=== PATIENT | male | born 1940 | race Caucasian/White ===

== ENCOUNTER 2019-03-15 06:28 | Day surgery (SDC) | payer MEDICARE, OTHER, SELFPAY ==
[2019-03-14 17:39] VITALS: BMI 25.8
--- NOTE | 2019-03-15 | SCC_ITS ---
Procedure Done: Right second hammertoe correction 1 second of fluoroscopic guidance, for a cumulative dose of 0.020 mGy, was provided to Dr. Yeager by the radiology department. C-arm images of the RIGHT foot were saved for the patient's permanent record. [facility]
[2019-03-15] MEDS: sodium chloride 0.9% 1,000 ML 30 ML IV (07:00)
[2019-03-15 07:08] VITALS: BP 138/71; PULSE 62; RESP 18; TEMP 36.3; O2SAT 97
--- NOTE | 2019-03-15 07:45 | ANES.PREANES ---
Pre-Anesthetic Assessment Pre-Anesthetic Assessment: Height/Weight: Height 1.73 m Weight 77.111 kg Temp Pulse Resp BP Pulse Ox 97.4 F L 62 18 138/71 97 03/15/19 07:08 03/15/19 07:08 03/15/19 07:08 03/15/19 07:08 03/15/19 07:08 Preop Diagnosis: Right second hammertoe deformity Proposed Procedure: Operation Date: 03/15/19 08:10 Proposed Procedures p Hammertoe Correction(Right) - Caio Yeager, DPM Was Beta Racquel taken within 24 hours: Yes Last intake: 05:15 Social: Packs per day: 0.5 ppd Pack years: 30 pack years Exam: Pre-Anes Outpt Exam: alert, oriented x 3, clear to auscultation bilaterally and regular rate & rhythm Airway: Submandibular: WNL Cervical ROM: WNL MP: 1 CV/HEM: CV/HEM: HTN Comments: rx'd 26 year, CABG 3 '94, 2 blocks/2 FOS JEAN/ANgina - Metabolic: Metabolic: Hyperlipidemia and Thyroid Comments: Replacement 15years Anesthetic Plan: ASA status: III Anesthesia: MAC Data Anesthesia Cardiac Studies: No Data to Display
[2019-03-15] MEDS: clindamycin 900 MG/50 ML PREMIX 100 MG IV (08:38)
[2019-03-15 09:53] VITALS: BP 115/60; PULSE 54; RESP 18; TEMP 36.9; O2SAT 96
[2019-03-15 10:01] VITALS: BP 113/64; PULSE 57; RESP 18; O2SAT 97
--- NOTE | 2019-03-17 12:15 | PM.OP ---
Operative Report Date of procedure: 03/17/19 Pre-op Diagnosis: Right second hammertoe deformity Post-op diagnosis: same Post-op Findings: Failed hammertoe implant right second toe. Procedure Done: Right second hammertoe correction Implants: 0.062 K wire Pathology: Fractured hammertoe implant sent to pathology for permanent Surgeon: Caio Yeager Radiology Administrator: See intraoperative documentation Anesthesia: MAC Estimated blood loss (mL): 2 Tourniquet time: See intraoperative documentation IV fluids (mL): 0 Urine output (mL): 0 Complications: No complications Findings: Failed implant right second toe fractured at the arthrodesis site Condition: stable Disposition: PACU Brief History: Mr. Pagan is a pleasant 78-year-old male who has had ongoing pain in his right second hammertoe he underwent hammertoe correction with arthrodesis at the proximal interphalangeal joint during the postoperative course it was noted that the deformity had a reoccurrence on plain film x-rays I was suspicious of a failed implant that had broken. Recommended a revision of the hammertoe deformity with implant removal and K wire fixation. Patient is agreeable wishes to proceed. Risks include but are not limited to pain, bleeding, numbness, infection, recurrence of deformity, failed arthrodesis site, delayed union, malunion, need for further surgical intervention, pin site infection, transfer pressure and lesions. Procedure: Under mild sedation the patient was brought to the operating room and placed on the operating table in supine position. A timeout was performed. Anesthesia was administered by the anesthesia service. Local anesthesia was injected by myself total of 20 cc of 0.5% Marcaine plain and a right second ray block fashion. A well-padded pneumatic tourniquet was applied to the right ankle. The right lower extremity was then scrubbed, prepped and draped utilizing normal aseptic technique. Right foot was examined a weighted with a Esmarch bandage and the tourniquet was inflated to 250 mmHg. Attention was directed to the dorsum of the right second toe where a linear longitudinal incision was made directly over the previous well-healed cicatrix. Incision was made with a #15 blade through skin and dissection was carried down through subcutaneous tissue utilizing a combination of blunt and sharp technique. Care was taken to retract and preserve neurovascular and tendinous structures. Bleeders were ligated and cauterized as necessary. Transverse tenotomy and capsulotomy was performed at the level of the proximal interphalangeal joint. Dissection was carried down to the joint implant which had been noted to be broken in half at the arthrodesis site of the proximal interphalangeal joint. The half of implant that was inserted into the intermediate phalanx was easily extracted and passed from the operative field, this was sent to pathology for permanent. The other half that was well-seated within the head of the proximal phalanx was attempted to be extracted. I felt it best to leave the implant intact as it did not easily rotate or back out. Remodeling at the arthrodesis site was performed with a bone valance cutter to healthy base with all fibrous connective tissue excised. Next utilizing a standard smooth trocar tipped K wire 0.062 inches the second hammertoe deformity was reduced and fixated utilizing antegrade technique from the base of the intermediate phalanx at the distal toe and then antegrade it back into the proximal phalanx with the toe held in a rectus position and advancing the wire into the second metatarsal for additional stabilization. K wire was trimmed of excess length and bent at 90 degrees and covered with a Robinson ball. Second toe was in a rectus position while loading the right foot. Incision site was then flushed with saline solution. Capsular structure and extensor tendon was reapproximated with 4-0 Vicryl. Skin closed with 4-0 nylon. Incision dressed with Adaptic, sterile 4 x 4's, Kerlix and John wrap. Postop shoe was applied. Tourniquet was deflated and a prompt hyperemic response was noted to the distal digits of the right foot. There was a brisk capillary refill time less than 3 seconds appreciated at the distal right second toe. Patient tolerated the procedure well and was transferred to the PACU with vital signs stable and vascular status intact. Following a period of postoperative monitoring he will be discharged home. He is to be limited weightbearing at all times to use the postop shoe. He is to elevate his right foot while at rest. He is provided my cell phone number and is to contact me with postoperative questions or concerns. Follow-up in 1 week he is aware of date and time.
--- NOTE | 2019-03-18 | XR_ITS ---
WS: [id number] INTRAOPERATIVE TECHNIQUE: 1 Spot fluoroscopic images for intraoperative purposes. FLUOROSCOPY TIME: 1 second CLINICAL INFORMATION: Right hammertoe COMPARISON: None. FINDINGS: Percutaneous fixation across the second digit. XR/XR foot RT 2V [id number] IMPRESSION: Images obtained for intraoperative purposes.
== END 2019-03-15 10:43 | disposition home or self-care (01) ==
PROVIDERS: Family Provider Family Medicine; PCP Family Medicine; Visit Provider Podiatrist Foot & Ankle Surgery
PROC: (CPT 28285; principal; 2019-03-15 08:10)
DX: M20.41 Other hammer toe(s) (acquired), right foot (principal)
CPT/HCPCS: 28285; 12345; 73620; 76000; 88300; 96365; C1713; J2704; J3010; J3490; J7030; L3260

== ENCOUNTER 2019-03-20 09:49 | Outpatient (CLI) | payer MEDICARE, OTHER, SELFPAY ==
--- NOTE | 2019-03-20 08:45 | USCV_ITS ---
Hosea Pagan Age: 78 Gender: M : 1940 Exam Date: 03/20/2019 10:08 Ordering Phys: Caio Yeager DPM Technologist: LIANNA BERG Exam Location: [facility] [place] Indication: RULE OUT DVT PROCEDURES: Venous duplex imaging was performed in only the right lower extremity. The following venous structures were evaluated: common femoral vein, profunda vein, proximal portion of the greater saphenous vein, superficial femoral vein, and the popliteal vein. In addition, the posterior tibial and peroneal trunk were evaluated. Serial compression, augmentation maneuvers, and spectral Doppler flow evaluation were performed. FINDINGS: Normal 2-D Doppler and augmentation and compressibility throughout the lower extremity venous structures. Additional imaging through the proximal calf veins also reveals no thrombus. Limited evaluation of the greater saphenous vein is patent with no thrombus. There is subcutaneous right lower extremity edema noted. CONCLUSIONS No DVT right lower extremity. Dr. Yvonne Chavez DO (Electronically Signed) Final Date: 20 March 2019 10:56 S
== END 2019-03-20 09:50 | disposition home or self-care (01) ==
LOC: RAD 09:56
PROVIDERS: Family Provider Family Medicine; PCP Family Medicine; Visit Provider Podiatrist Foot & Ankle Surgery
DX: Z48.89 Encounter for other specified surgical aftercare (principal)
CPT/HCPCS: 73620; 73630; 93971

== ENCOUNTER 2019-03-20 13:30 | Outpatient (CLI) | payer MEDICARE, OTHER, SELFPAY | END 2019-03-20 13:31 | disposition home or self-care (01) | LOC: SPT 13:31 | PROVIDERS: Family Provider Family Medicine; PCP Family Medicine; Visit Provider Podiatrist Foot & Ankle Surgery | DX: Z46.89 Encounter for fitting and adjustment of other specified devices (principal); G89.18 Other acute postprocedural pain; R60.0 Localized edema | CPT/HCPCS: 73620; 73630; 93971; L4361 ==

== ENCOUNTER 2019-03-25 14:50 | Outpatient (CLI) | payer MEDICARE, OTHER, SELFPAY ==
--- NOTE | 2019-03-25 15:00 | USCV_ITS ---
Ej Hoesa Age: 78 Gender: M : 1940 Exam Date: 03/25/2019 15:05 Ordering Phys: Caio Yeager DPM Technologist: Max Grace Exam Location: [facility] [place] Indication: r/o DVT HISTORY: Right lower extremity swelling. PROCEDURES: Venous duplex imaging was performed in only the right lower extremity. On the right side, the common femoral, superficial femoral, profunda femoral, popliteal, posterior tibial, greater saphenous veins and the peroneal trunk were identified and interrogated in the standard fashion. FINDINGS: Normal 2-D Doppler and augmentation and compressibility throughout the lower extremity venous structures. Additional imaging through the proximal calf veins also reveals no thrombus. Limited evaluation of the greater saphenous vein is patent with no thrombus. There is subcutaneous right lower extremity edema noted. CONCLUSIONS No DVT right lower extremity. Dr. Yvonne Chavez DO (Electronically Signed) Final Date: 25 March 2019 15:55 S
--- NOTE | 2019-03-27 12:07 | P.EN_ITS ---
Event Note Event Note: Hosea Pagan : 1940 History of Present Illness Sent over from Dr Gutierrez office for persistent right lower ext swelling. Started a few days after surgery on right foot 10 days ago. Has had 2 US done that were neg. Also on Clinda and Cipro. Leg not really red. NO fevers or chills. no chest pain. no shortness of breath. Labs done with D-dimer high and Cr little higher. Current Medications: TAMSULOSIN HCL 0.4 MG ORAL CAPSULE (TAMSULOSIN HCL) 1 tab once a day for prostate FERROUS SULFATE 325 (65 FE) MG ORAL TABLET (FERROUS SULFATE) 1 tab once a day ASPIR-LOW 81 MG ORAL TABLET DELAYED RELEASE (ASPIRIN) 1 tab once a day FLONASE ALLERGY RELIEF 50 MCG/ACT NASAL SUSPENSION (FLUTICASONE PROPIONATE) 2 sprays once a day ATORVASTATIN CALCIUM 80 MG ORAL TABLET (ATORVASTATIN CALCIUM) 1 tab once a day for Hyperlipidemia AMLODIPINE BESYLATE 10 MG ORAL TABLET (AMLODIPINE BESYLATE) 1/2 tab once a day for Hypertension METOPROLOL SUCCINATE ER 25 MG ORAL TABLET EXTENDED RELEASE 24 HOUR (METOPROLOL SUCCINATE) 1 tab once a day BENAZEPRIL HCL 20 MG ORAL TABLET (BENAZEPRIL HCL) 1 tab twice a day ALLOPURINOL 300 MG ORAL TABLET (ALLOPURINOL) 1 tab once a day for gout LEVOTHYROXINE SODIUM 150 MCG ORAL TABLET (LEVOTHYROXINE SODIUM) 1 tab once a day NAPROXEN 500 MG ORAL TABLET (NAPROXEN) 1 tab twice a day for pain Allergies: KEFLEX (CEPHALEXIN) (Severe) Preventive: CHOLESTEROL: 107 (03/22/2018 10:00:00 AM) COLONOSCOPY: normal 9 years ago (03/22/2018 8:51:18 AM) BONE DENSITY: PSA: 2.04 (03/22/2018 10:00:00 AM) Flu: done (03/22/2018 8:51:18 AM) DTAP: PNEUMOVAX: PREVNAR 13: 3 years ago. (03/22/2018 8:51:18 AM) ZOSTAVAX: done (03/22/2018 8:51:18 AM) Past, Family, and Social History Past History (reviewed - no changes required): PAST MEDICAL HISTORY: Hypertension ; Coronary Artery Disease with VT in 1993; Hyperlipidemia; gout; hypothyroid; PAST SURGICAL HISTORY: CABG x 3 1993; hernia x 3; nasal polyp 2009; Left knee partial meniscus 2017; Colonoscopy and EGD normal 2007. 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 Quit smoking 2017. 30 pack year hx. rare alcohol 01/15 - does not want rescussitation if no sig hope of recovery. Pa and Nuria - children both DPA. Physical Exam: Previous Weight: 167 (01/09/2019 10:20:08 AM) Vital Signs: Patient Profile: 78 Years Old Male Height: 68 inches Weight: 172 pounds BMI: 26.15 O2 Sat: 96 % Temp: 98.3 degrees F oral Pulse rate: 75 / minute Resp: 20 per minute BP sittin / 68 Constitutional: Alert, no acute distress, well hydrated, well developed, well nourished. Skin: Normal turgor, normal color, no rashes, no lesions, no unusual bruising. Cardiovascular: RRR, no murmurs, no gallops, peripheral pulses intact, 2-3+ edema in right leg up to thigh. 1-2+ in left. . Respiratory: No respiratory distress, no accessory muscle use, clear to auscultation. Abdomen: nondistended, nontender, normal BS, no hepatosplenomegaly, no hernias. difficult to assess but ? mass in Right LQ of abdomen. Neurol: station & gait normal. Psych: Oriented to all spheres, affect normal. Problem Assessment - Right leg edema - ? etiology. Odd presentation. With Cr elevated will wait on lasix until some further testing done. Stop amiodarone in case it is contributing. Check BNP and inflammatory tests. Get non-contrast CT of abd and pelvis to rule out an obstructing pelvic mass. - Return to Clinic in 2 days Assessment New Problems: Abdominal mass, right lower quadrant (ICD-789.33) (TZH57-T71.03) Edema (ICD-782.3) (RUG54-F47.9) Plan Updated Medication List: TAMSULOSIN HCL 0.4 MG ORAL CAPSULE (TAMSULOSIN HCL) 1 tab once a day for prostate FERROUS SULFATE 325 (65 FE) MG ORAL TABLET (FERROUS SULFATE) 1 tab once a day ASPIR-LOW 81 MG ORAL TABLET DELAYED RELEASE (ASPIRIN) 1 tab once a day FLONASE ALLERGY RELIEF 50 MCG/ACT NASAL SUSPENSION (FLUTICASONE PROPIONATE) 2 sprays once a day ATORVASTATIN CALCIUM 80 MG ORAL TABLET (ATORVASTATIN CALCIUM) 1 tab once a day for Hyperlipidemia AMLODIPINE BESYLATE 10 MG ORAL TABLET (AMLODIPINE BESYLATE) 1/2 tab once a day for Hypertension METOPROLOL SUCCINATE ER 25 MG ORAL TABLET EXTENDED RELEASE 24 HOUR (METOPROLOL SUCCINATE) 1 tab once a day BENAZEPRIL HCL 20 MG ORAL TABLET (BENAZEPRIL HCL) 1 tab twice a day ALLOPURINOL 300 MG ORAL TABLET (ALLOPURINOL) 1 tab once a day for gout LEVOTHYROXINE SODIUM 150 MCG ORAL TABLET (LEVOTHYROXINE SODIUM) 1 tab once a day NAPROXEN 500 MG ORAL TABLET (NAPROXEN) 1 tab twice a day for pain New Orders: Ofc Vst, Est Level IV [CPT-84383] BNP [CPT-25033] RBC sedimentation rate, automated [CPT-85728] C-reactive protein [CPT-89343] CBC w/auto diff WBC [CPT-95970] CT scan [0000]
== END 2019-03-25 14:51 | disposition home or self-care (01) ==
LOC: RAD 14:52
PROVIDERS: Family Provider Family Medicine; PCP Family Medicine; Visit Provider Podiatrist Foot & Ankle Surgery
DX: R60.0 Localized edema (principal); M79.89 Other specified soft tissue disorders
CPT/HCPCS: 93971

== ENCOUNTER 2019-03-28 09:13 | Outpatient (CLI) | payer MEDICARE, OTHER, SELFPAY ==
--- NOTE | 2019-03-28 09:56 | CT_ITS ---
WS: [id number] CT ABDOMEN PELVIS TECHNIQUE: Noncontrast CT of the abdomen and pelvis with coronal and sagittal reformatted images. CLINICAL INFORMATION: RIGHT LOWER QUADRANT ABDOMINAL MASS DLP: 929.[address] scans at [facility] use at least one of these dose optimization techniques: automat ed exposure control; mA and/or kV adjustment per patient size (includes targeted exams where dose is matched to clinical indication); or iterative reconstruction. FINDINGS: Noncontrast liver is normal. Normal gallbladder. Noncontrast spleen is normal. Large esophageal hiata l hernia with intrathoracic stomach. Majority of the stomach is intrathoracic. Lung bases are well ae rated. Adrenal glands are normal. Aortic calcification. Dense mesenteric calcification. Slightly aneu rysmal infrarenal abdominal aorta measuring 3.1 x 2.8 cm. Aneurysmal right common iliac artery measur ing 2.5 x 2.8 cm. Left common iliac artery aneurysm measuring 1.8 cm. Densely calcified iliac arterie s bilaterally. Bilateral renal cortical atrophy. Multiple bilateral renal cortical cysts the largest in the left harrison suring 5.4 CM. No hydronephrosis. A few small increased attenuation right renal lesions likely hemorr hagic cysts. Calcified enlarged prostate measuring 5.2 cm in maximum dimension. Diverticulosis. No evidence of acu te diverticulitis. Fat-containing epigastric hernia in the upper abdomen containing omental fat. No h erniated bowel. Widemouth hernia opening measuring 1.7 CM. Advanced spondylitic changes lumbar spine. Slightly enlarged right inguinal lymph nodes nonspecific b ut likely reactive. Largest measure 10 to 11 mm in short axis dimension. CT/CT abdomen pelvis wo con [id number] IMPRESSION: 1. Large esophageal hiatal hernia with intrathoracic stomach. Majority of the stomach is intrathoracic. No evidence of obstruction. 2. Epigastric hernia in the upper abdomen with herniated omental fat. Widemout h hernia measures 1.7 CM. No herniated bowel. 3. 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 Small left commo n iliac artery aneurysm measuring 1.8 cm. 4. Diverticulosis. No evidence of acute diverticulitis. 5. Bilateral renal cortical cysts largest in the left measuring 5.4 CM. No hyd ronephrosis. 6. A few prominent right inguinal lymph nodes the largest measuring 10-11 mm s hort axis dimension nonspecific but likely reactive 7. Enlarged calcified prostate measuring 5.1 cm. Recommend correlation PSA.
[2019-03-28] MEDS: iohexol 300 mg/mL 50 mL Btl PO (11:18)
== END 2019-03-28 09:14 | disposition home or self-care (01) ==
PROVIDERS: Family Provider Family Medicine; PCP Family Medicine; Visit Provider Family Medicine
DX: R19.03 Right lower quadrant abdominal swelling, mass and lump (principal); R60.9 Edema, unspecified; K44.9 Diaphragmatic hernia without obstruction or gangrene; K43.9 Ventral hernia without obstruction or gangrene; I72.3 Aneurysm of iliac artery; K57.90 Diverticulosis of intestine, part unspecified, without perforation or abscess without bleeding; Q61.02 Congenital multiple renal cysts; N40.0 Benign prostatic hyperplasia without lower urinary tract symptoms
CPT/HCPCS: 74176

== ENCOUNTER → 2019-04-01 08:05 | Outpatient (BNVA) | payer MEDICARE, OTHER, SELFPAY | PROVIDERS: Family Provider Family Medicine; PCP Family Medicine; Visit Provider Podiatrist Foot & Ankle Surgery | DX: Z48.89 Encounter for other specified surgical aftercare (principal); R60.0 Localized edema; Z98.890 Other specified postprocedural states; Z89.421 Acquired absence of other right toe(s) | CPT/HCPCS: 73620 ==

== ENCOUNTER 2019-04-02 13:15 | Inpatient (IN) | payer MEDICARE, OTHER, SELFPAY ==
[2019-04-02] VITALS (15 sets, daily range): BP systolic 68–145; BP diastolic 48–72; PULSE 52–83; RESP 12–20; TEMP 36.5–36.7; O2SAT 83–99; BMI 25.8
--- NOTE | 2019-04-02 08:05 | PM.HPUD ---
H&P update H&P Update: DATE OF SURGERY/PROCEDURE: 04/02/19 DATE H&P PERFORMED: 04/01/19 H&P UPDATE INFORMATION: H&P completed within last 30 days, No changes to prior documentation and H&P is in [facility] [place] on date indicated PREOP DIAGNOSIS: Infected hardware right second toe PLANNED PROCEDURE: Operation Date: 04/02/19 12:20 Proposed Procedures p Amputation Toe/s Right second toe(Right) - Caio Yeager DPM Full H&P Perinent History: Medical/Surgical History: Medical History (Updated 04/01/19 @ 11:57 by Caio Yeager DPM) Coronary atherosclerosis (Acute) Hammertoe (Acute) Hammertoe of second toe of right foot (Acute) History of heart attack (Acute) Hypercholesterolemia (Acute) Hypertension (Acute) Hypothyroidism (Acute) Sciatica (Inactive) Tear of meniscus of left knee (Acute) Social History: Social History Smoking and tobacco status: current every day smoker Alcohol intake: current Alcohol intake frequency: holidays/special occasions only Household members: none Marital status: / Current occupational status: retired [employer] Assessment and plan (1) Cellulitis of right leg: Status: Acute Code(s): L03.115 - Cellulitis of right lower limb (2) Leg edema, right: Status: Acute Code(s): R60.0 - Localized edema (3) Hammertoe of second toe of right foot: Status: Acute Code(s): M20.41 - Other hammer toe(s) (acquired), right foot (4) Infected hardware in right lower extremity: Status: Acute Qualifiers: Encounter type: subsequent encounter Qualified Code(s): T84.7XXD - Infection and inflammatory reaction due to other internal orthopedic prosthetic devices, implants and grafts, subsequent encounter Code(s): T84.7XXA - Infection and inflammatory reaction due to other internal orthopedic prosthetic devices, implants and grafts, initial encounter
--- NOTE | 2019-04-02 11:38 | ANES.PREANE2 ---
Pre-Anesthetic Assessment Pre-Anesthetic Assessment: Height/Weight: Height 1.73 m Weight 77.111 kg Temp Pulse Resp BP Pulse Ox 97.8 F 60 18 134/61 99 04/02/19 11:33 04/02/19 11:33 04/02/19 11:33 04/02/19 11:33 04/02/19 11:33 Preop Diagnosis: Infected hardware right second toe Proposed Procedure: Operation Date: 04/02/19 12:20 Proposed Procedures p Amputation Toe/s Right second toe(Right) - Caio Yeager DPM Familial anesthetic complications: Once had a cold and after his nasal polypectomy he had to wear a cpap for a bit Was Beta Racquel taken within 24 hours: Yes Last intake: Intake took BP meds and thyroid meds this morning Last Liquid Date 04/01/19 Last Liquid Time 22:00 Last Solid Date 04/01/19 Last Solid Time 22:00 Social: Social History: Tobacco Packs per day: 0.5 ppd Exam: Pre-Anes Outpt Exam: alert, oriented x 3, clear to auscultation bilaterally and regular rate & rhythm Airway: Cervical ROM: WNL MP: 2 Dentition: Full Pulmonary: Pulmonary: None reported CV/HEM: CV/HEM: HTN Comments: CABG 26 years ago, but no issues with heart since : : None reported Hepatic: Hepatic: None reported GI: GI: None reported Metabolic: Metabolic: Thyroid Musc/skel: Musc/skel: None reported Neuropsych: Neuropsych: None reported Anesthetic Plan: ASA status: II Anesthesia: MAC PFSH Anesthesia PFSH: Medical History (Updated 04/02/19 @ 08:06 by Caio Yeager DPM) Coronary atherosclerosis (Acute) Hammertoe (Acute) Hammertoe of second toe of right foot (Acute) History of heart attack (Acute) Hypercholesterolemia (Acute) Hypertension (Acute) Hypothyroidism (Acute) Sciatica (Inactive) Tear of meniscus of left knee (Acute) Surgical History (Updated 04/01/19 @ 08:03 by Althea Lee LPN) H/O arthroscopic knee surgery (Acute) H/O hernia repair (Acute) Hx of CABG (Acute) Social History Smoking and tobacco status: current every day smoker Alcohol intake: current Alcohol intake frequency: holidays/special occasions only Household members: none Marital status: / Current occupational status: retired Data Anesthesia Cardiac Studies: No Data to Display
[2019-04-02] MEDS: sodium chloride 0.9% 1,000 ML 30 ML IV (11:55)
[2019-04-02] MEDS: lidocaine 1% INJ 50 mL INJECTION (11:57)
[2019-04-02] MEDS: clindamycin 600 MG/50 ML PREMIX 100 MG IV (12:12)
--- NOTE | 2019-04-02 13:31 | PM.OP ---
Operative Report Date of procedure: April 02, 2019 Pre-op Diagnosis: Infected deep hardware right second toe. Hammertoe deformity right second toe. Post-op diagnosis: same Procedure Done: Right second toe amputation CPT 57518 Implants: No implants Specimens removed/disposition: Right second toe intermediate phalanx sent to microbiology for culture and sensitivity. Right second toe sent to pathology for permanent. Pathology: Right second toe Surgeon: Caio Yeager D.P.M. Human Service Coordinator: Fadi Estimated blood loss: 5 mL IV fluids: None Urine output: None Complications: None Condition: stable Disposition: floor Brief History: Mr. Pagan is a pleasant 78-year-old male who underwent hammertoe repair with implant, implant failed revisional hammertoe surgery removed failed implant and K wire fixation performed. He has had postoperative swelling, pain and cellulitis. Patient opting for amputation versus salvage efforts. Procedure: Under mild sedation the patient was brought to the operating room and placed on the operating table in supine position. A timeout was performed. Anesthesia was administered by the anesthesia service. Local anesthesia was injected by myself consisting of 25 cc of one-to-one mixture 1% lidocaine 0.5% Marcaine plain and a right second ray block fashion. Well-padded pneumatic tourniquet was applied to the right ankle. The right lower extremity was then scrubbed, prepped and draped utilizing normal aseptic technique. No Esmarch bandage was utilized. Right foot was elevated and tourniquet was inflated to 250 mmHg. Attention was directed to the right toe where 2 converging semi-elliptical incisions were performed in a vertical [place] fashion full-thickness down to bone with a #15 blade. The right second toe was disarticulated at the metatarsal phalangeal joint and passed from the operative field. All bleeders were ligated and cauterized as necessary extensor and flexor tendons were transected at the most proximal margin. Incision site was flushed with copious amounts of sterile saline solution. Attention was directed to the toe on the back filled and the intermediate phalanx was disarticulated and sent as a specimen to microbiology for bone culture and sensitivity. Second toe was sent to pathology for permanent. Outer layer of gloves were removed to provide more sterile field. Further irrigation was performed at the incision site with copious amounts of sterile saline solution. Second metatarsal head was visualized appeared to be viable color and density without any signs of necrosis. No surrounding soft tissue necrosis or devitalized soft tissue appreciated. Deep structures were reapproximated utilizing 3-0 Vicryl. Skin was then closed with 4-0 nylon. Incision site was dressed with Adaptic, sterile 4 x 4's, Kerlix and John wrap. Patient tolerated the procedure well and was transferred to the PACU with vital signs stable and vascular status intact. Following a period of post operative monitoring he will be transferred to the floor. Will remain inpatient with empiric IV antibiotics and limited weightbearing until culture and sensitivities are available.
[2019-04-02 15:18] LABS: Basophils # 0.1 10^3/uL (0.0-0.1); Eosinophils # 0.4 10^3/uL (0.0-0.8); Eosinophils % 5.2 %; Hematocrit 35.2 % (42.0-52.0); Hemoglobin 11.6 g/dL (11.7-16.6); Lymphocytes # 1.6 10^3/uL (0.8-4.8); Lymphocytes % 23.9 %; Mean Corpuscular Hemoglobin 30.9 pg (28.0-34.0); Mean Corpuscular Volume 93.9 fL (80-94); Mean Platelet Volume 9.6 fL (7.4-10.4); Monocytes # 0.4 10^3/uL (0.2-0.9); Monocytes % 6.1 %; Neutrophils # 4.4 10^3/uL (1.8-7.7); Neutrophils % 63.7 %; Nucleated Red Blood Cells % 0 %; Platelet Count 389 10^3/cmm (130-400); Red Blood Count 3.75 10^6/uL (4.1-5.3); Red Cell Distribution Width 15.4 % (12.1-15.1); White Blood Count 6.9 10^3/uL (4.0-10.0)
[2019-04-02 15:33] LABS: Alanine Aminotransferase 26 U/L (0-41); Albumin Level 3.5 g/dL (3.5-5.2); Alkaline Phosphatase 157 IU/L (40-130); Anion Gap 11.9 (5-19); Aspartate Amino Transferase 34 U/L (0-40); Blood Urea Nitrogen 27 mg/dL (8-23); C Reactive Protein 3.4 mg/L (0.0-4.9); Calcium 9.1 mg/dL (8.5-10.5); Carbon Dioxide 23 mmol/L (22-29); Chloride 104 mmol/L (98-107); Globulin 2.8 g/dL (1.3-4.6); Potassium 4.9 mmol/L (3.5-5.1); Sodium 134 mmol/L (136-145); Total Bilirubin 0.2 mg/dL (0.15-1.2); Total Protein 6.3 g/dL (6.6-8.7)
--- NOTE | 2019-04-02 15:59 | XR_ITS ---
WS: [id number] Right foot, 3 views, 04/02/2019 Clinical Data: post op Comparison: Right foot x-ray, 04/01/2019 Findings: The right second toe has been removed. There is air in the operative site. The remainder of the foot shows no change. In the distal right leg there are small medial subcutaneous clips. The tarsal bones and metatarsals are unremarkable. XR/XR foot RT min 3V* [id number] Impression: Amputation of right second toe.
[2019-04-02] MEDS: HYDROcodone-acetaminophen 5-325 mg Tablet PO ×2 (17:14→21:22)
[2019-04-02] MEDS: amlodipine 10 mg Tablet PO (17:16)
[2019-04-02] MEDS: aspirin 81 mg EC Tablet PO (17:16)
[2019-04-02] MEDS: lisinopril 20 mg Tablet PO (17:17)
[2019-04-02] MEDS: lactobacillus 1 Tablet 4 TAB PO ×2 (17:17→20:08)
[2019-04-02] MEDS: allopurinol 300 mg Tablet 150 MG PO (17:17)
[2019-04-02] MEDS: metoprolol succinate ER (24 HR) 25 mg Tablet 12.5 MG PO (17:18)
[2019-04-02] MEDS: vancomycin 1,000 MG in sodium chloride 0.9% 250 ML 250 MG IV (17:19)
[2019-04-02] MEDS: enoxaparin 40 mg/0.4 mL Syringe SUBCUT (17:25)
[2019-04-02] MEDS: piperacillin-tazobactam 3.375 GM in sodium chloride 0.9% (plus) 50 ML IV (20:07)
[2019-04-02] MEDS: acetaminophen 500 mg Tablet 1000 MG PO (20:41)
[2019-04-03 01:22] VITALS: BP 103/55; PULSE 51; RESP 20; TEMP 37; O2SAT 93
[2019-04-03] MEDS: HYDROcodone-acetaminophen 5-325 mg Tablet PO ×2 (01:24→05:17)
[2019-04-03] MEDS: piperacillin-tazobactam 3.375 GM in sodium chloride 0.9% (plus) 50 ML IV ×3 (02:49→19:59)
[2019-04-03 03:57] VITALS: BP 114/56; PULSE 49; RESP 18; TEMP 36.9; O2SAT 93
[2019-04-03] MEDS: levothyroxine 150 mcg Tablet PO (05:18)
--- NOTE | 2019-04-03 06:21 | PC.NURSE ---
THE RIGHT SECOND TOE WAS SURGICALLY REMOVED. THE PT STATES THAT THEY FEEL WAY BETTER AND THAT THE DR CUT OFF THE HEAD OF THE SNAKE. THE SWELLING IN THE RIGHT LEG HAS DECREASED. PT WAS GIVEN PAIN MEDS Q4H PER PT REQUEST. PT IS UP WALING AROUND. WILL CONTINUE TO MONITOR.
--- NOTE | 2019-04-03 06:49 | PM.PN ---
Subjective Subjective: Interval history: Mr. Pagan is a pleasant 78-year-old male 1 day status post right second toe amputation secondary to infected hardware. He endorses pain at the surgical site. He reports decreased redness and swelling to the right leg. His daughter is bedside. He is tolerating regular diet. Patient denies any subjective nausea, vomiting, fever, chills, shortness of breath or chest pain. Vitals/I&O/Wt Last Vital Signs Temp 98.4 F 04/03/19 03:57 Pulse 49 L 04/03/19 03:57 Resp 18 04/03/19 03:57 BP 114/56 04/03/19 03:57 Pulse Ox 93 04/03/19 03:57 04/02/19 04/02/19 04/03/19 14:59 22:59 06:59 Intake Total 50 / 50 720 / 770 50 / 820 Output Total 5 / 5 Balance 45 / 45 720 / 765 50 / 815 Weight last 48 hrs Weight 170 lb Physical Exam Narrative: EXAM NARRATIVE: EXAM NARRATIVE: Patient is alert and oriented ?3 and in no acute distress. The following is a focused bilateral lower extremity exam. VASCULAR: Dorsalis pedis and posterior tibial arteries palpable. Capillary refill time less than 3 seconds to the distal hallux bilaterally. Calf is supple and nontender proximally and distally. Diminished pedal hair growth bilaterally. Improved right lower extremity edema. NEUROLOGICAL: Protective sensation intact 7/10 sites, tested with [place] Sandra monofilament to bilateral feet. DERMATOLOGICAL: Incision at right second toe amputation site is well coapted with sutures intact. No signs of dehiscence, no drainage no active bleeding at this time. No kira-incisional warmth appreciated. There are skin tension lines present at the right leg consistent with decreased edema. MUSCULOSKELETAL: . Mild tenderness to palpation at the operative site. Pes planus foot type bilaterally. Muscle strength 5 out of 5 in all 3 cardinal planes. \ Data : 04/02/19 15:10 04/02/19 15:10 Micro: Microbiology 04/02/19 12:33 Gram Stain - Final Bone A&P Assessment and plan (1) Infected hardware in right lower extremity: Status: Acute Qualifiers: Encounter type: subsequent encounter Qualified Code(s): T84.7XXD - Infection and inflammatory reaction due to other internal orthopedic prosthetic devices, implants and grafts, subsequent encounter Code(s): T84.7XXA - Infection and inflammatory reaction due to other internal orthopedic prosthetic devices, implants and grafts, initial encounter (2) Cellulitis of right leg: Status: Acute Code(s): L03.115 - Cellulitis of right lower limb (3) Leg edema, right: Status: Acute Code(s): R60.0 - Localized edema Mr. Pagan is a pleasant 78-year-old male 1 day status post right second toe amputation secondary to infected hardware and cellulitis. -Patient to remain limited weightbearing may heel touch for transfers otherwise he is to be elevating his right foot at all times while at rest and in bed. -Keep postoperative dressing clean, dry and intact, there is no strikethrough bleeding at this time. -He is receiving empiric IV antibiotics vancomycin and Zosyn with improvement. -Will continue to monitor, may be okay for discharge tomorrow if there is continued improvement clinically, planning on 2 weeks of oral antibiotics on discharge consider Bactrim or doxycycline -Right second toe intermediate phalanx bone sent to microbiology for culture and sensitivity, Gram stain negative for organisms, few white blood cells seen. Clean margins appreciated intraoperatively with the level of amputation performed. -Will schedule pain medication 5/325 mg hydrocodone every 4 hours and 600 mg of ibuprofen every 8 hours while inpatient. Attestations Medical Necessity Statement*: Infected hardware right second toe, cellulitis right lower extremity. Coding Level of Care Code Acute Manager New Product for [facility] Diagnoses Infected hardware in right lower extremity T84.7XXD Encounter type: subsequent encounter Cellulitis of right leg L03.115 Leg edema, right R60.0
[2019-04-03 07:10] VITALS: BP 127/63; PULSE 56; RESP 18; TEMP 36.7; O2SAT 93
[2019-04-03 08:56] LABS: Glucose 156 mg/dL (65-115)
[2019-04-03] MEDS: nicotine 21 mg Patch 1 PATCH TRANSDERMA (09:25)
[2019-04-03] MEDS: allopurinol 300 mg Tablet 150 MG PO ×2 (09:26→18:29)
[2019-04-03] MEDS: atorvastatin 40 mg Tablet 80 MG PO (09:27)
[2019-04-03] MEDS: HYDROcodone-acetaminophen 5-325 mg Tablet 1 TAB PO ×3 (09:27→21:28)
[2019-04-03] MEDS: lactobacillus 1 Tablet 4 TAB PO ×3 (09:28→20:24)
[2019-04-03] MEDS: lisinopril 20 mg Tablet PO ×2 (09:28→18:29)
[2019-04-03] MEDS: metoprolol succinate ER (24 HR) 25 mg Tablet 12.5 MG PO ×2 (09:28→18:29)
[2019-04-03 11:05] VITALS: BP 121/68; PULSE 61; RESP 18; TEMP 36.4; O2SAT 92
--- NOTE | 2019-04-03 12:20 | PC.CHAP ---
Pastoral Care Encounter/Spiritual Assessment Type of Contact [] Declined rn field case manager visit [] Patient/Family/Request visit [] Outpatient visit [] Follow-up visit [] Physician referral [] Code/Alert [x] Routine visit [] Staff referral [] Actively dying [] Patient sleeping [] Family support [] [] Out of room [] Palliative care [] [] Receiving care in room [] Pre-surgical visit [] Trauma [] Long length of stay [] ICU visit [] Other: Relational/Emotional Strength [x] Patient feels connected with others/family/visitors/staff [x] Distress [x] Loneliness/isolation [] Abandonment Spirituality of Patient [x] Person of Daniela [x] Attends Bahai of their Daniela [x] Believes in Prayer [x] Reads Bible or Mandaeism materials [] There are Spiritual issues to be addressed Pumpman Interventions [x] Prayer [x] Active listening [x] Non-anxious presence [x] Spiritual/emotional support [] Crisis/trauma care [] Spiritual counseling [] Bereavement support [] Provided bereavement packet [] Provided Bible/devotional materials [] Provided toy/stuffed animal, coloring book to patient or family member [] Provided Communion [] Anointing/Portia [] Salvation [] Completed spiritual assessment [] Other: Impact on Illness or Injury [] Angry [] Fearful [] Anxious [] Often cries [] Exhaustion [] Unable to work [] Unable to attend anglican [] Unable to walk/stand [] Unable to read [] Unable to drive [] Unable to eat/drink [] Unable to sleep [] Unable to be with family [] Patient intubated [] Other: Summary patient has pain ready to go ho Time spent with patient 10 min
[2019-04-03] MEDS: ibuprofen 600 mg Tablet PO ×3 (12:57→20:25)
--- NOTE | 2019-04-03 14:03 | PM.HP ---
Providers/Chief Complaint Admitting Physician: Mello March MD Primary Care Provider: Melol March MD Chief Complaint: Right second toe amp History of Present Illness Hosea Pagan is a 78 year old male who presented to the operating room yesterday for amputation of his right second toe due to cellulitis and infection and concern for possible osteomyelitis. This occurred after hammertoe repair and subsequent complications. Patient's been dealing with some significant swelling in his right lower extremity. He has had couple of ultrasounds which were negative for DVTs. Been evaluated with CT of the abdomen and pelvis. Laboratory studies and lymphadenopathy on CT revealed most likely cellulitis being the cause of his edema. Patient been placed on multiple antibiotics without significant improvement. Most recently started on Bactrim. Patient made the decision to go ahead and proceed with amputation to help resolve this condition. This was performed yesterday with no complications. Patient is done well. This morning his swelling in his leg is tremendously better. Redness is improved significantly as well. Dr. Yeager feels like he got good margins. He has no fevers or chills. No chest pain or shortness of breath. Review of Systems Narrative: General: No chronic fevers or chronic weight changes. HEENT: No acute changes in vision. No acute hearing loss. No new difficulty swallowing. Heart: No new chest pain or recent issues with coronary disease. Lungs: No history of TB. No chronic lung disease. GI: No history of GI bleeding. No hepatitis. No chronic nausea or vomitting. Renal: No dysuria or frequency. No hematuria Neuro: No acute neurological changes or deficits. Musculoskeletal: No acutely worsening joint pain or swelling. Medications/Allergies Allergies Allergy/AdvReac Type Severity Reaction Status Date / Time cephalexin [From Keflex] Allergy Intermediate ALGY-Swell Verified 04/02/19 12:49 Lip/Tongue/Throat PFSH Acute PFSH: Statuses (acute, chronic, etc) shown below reflect problem list status as previously entered and may not be historically accurate Medical History (Updated 04/03/19 @ 14:06 by Mello March MD) Coronary atherosclerosis (Acute) Hammertoe (Acute) Hammertoe of second toe of right foot (Acute) History of heart attack (Acute) Hypercholesterolemia (Acute) Hypertension (Acute) Hypothyroidism (Acute) Sciatica (Inactive) Tear of meniscus of left knee (Acute) Surgical History (System 04/02/19 @ 12:49 by Neha Hartman) H/O arthroscopic knee surgery (Acute) H/O hernia repair (Acute) Hx of CABG (Acute) Social History (System 04/02/19 @ 12:49 by Neha Hartman) Smoking and tobacco status: current every day smoker Alcohol intake: current Alcohol intake frequency: holidays/special occasions only Household members: none Marital status: / Current occupational status: retired Vitals/I&O/Wt Last Vital Signs Temp 97.5 F L 04/03/19 11:05 Pulse 61 04/03/19 11:05 Resp 18 04/03/19 11:05 BP 121/68 04/03/19 11:05 Pulse Ox 92 04/03/19 11:05 04/02/19 04/03/19 04/03/19 22:59 06:59 14:59 Intake Total 720 / 870 100 / 870 1080 / 1080 Output Total 700 / 700 Balance 720 / 865 100 / 865 380 / 380 Weight last 48 hrs Weight 170 lb Physical Exam Narrative: EXAM NARRATIVE: General: No acute distress, Alert. Well nourished. HEENT: PERRLA, EOMI. vision grossly normal. Throat clear. Neck: supple, no adenopathy. Heart: Regular rate and rhythm. No murmurs, rubs or gallops. Normal capillary refill. Lungs: Clear to auscultation. No wheezes, rhonchi or rales. Abdomen: Positive bowel sounds. Non-tender, non-distended. No hepatosplenomegaly. No gaurding. Extremities: No clubbing, cyanosis, or edema. Negative Madyson's. Data : 04/02/19 15:10 04/02/19 15:10 Micro: Microbiology 04/02/19 12:33 Gram Stain - Final Bone Tissue Culture - Preliminary Gram Negative Rods 04/02/19 12:33 Anaerobic Culture - Preliminary Bone A&P Assessment and plan (1) Infected hardware in right lower extremity: -Status post right second toe amputation. Seems to be healing well. -We will continue with IV antibiotics for another 24 hours. -Follow-up on cultures. -Possible discharge home tomorrow. Status: Acute Qualifiers: Encounter type: subsequent encounter Qualified Code(s): T84.7XXD - Infection and inflammatory reaction due to other internal orthopedic prosthetic devices, implants and grafts, subsequent encounter Code(s): T84.7XXA - Infection and inflammatory reaction due to other internal orthopedic prosthetic devices, implants and grafts, initial encounter (2) Cellulitis of right leg: Status: Acute Code(s): L03.115 - Cellulitis of right lower limb (3) Hammertoe of second toe of right foot: Status: Acute Code(s): M20.41 - Other hammer toe(s) (acquired), right foot Attestations Medical Necessity Statement*: Patient is a 78-year-old gentleman with a cellulitis in his right lower extremity and status post amputation of his right great toe requiring continued inpatient hospitalization and IV treatments. 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
--- NOTE | 2019-04-03 16:28 | PC.NURSE ---
DR DELGADILLO CHANGED BANDAGE TO RIGHT FOOT DUE TO DRAINAGE HAD SOAKED THROUGH AND IT BEING LOOSE DUE TO SWELLING HAD DECREASED IN FOOT AND LOWER LEG, 4X4 TO AMPUTATION SITE ON SECOND TOE AREA AND THEN KERLEX WRAPPED TO SECURE DRESSING AND THEN JOSEPH WRAP.
[2019-04-03] MEDS: enoxaparin 40 mg/0.4 mL Syringe SUBCUT (17:24)
[2019-04-03] MEDS: vancomycin 1,000 MG in sodium chloride 0.9% 250 ML 250 MG IV (18:28)
[2019-04-03 19:23] VITALS: BP 128/67; PULSE 49; RESP 20; TEMP 36.8; O2SAT 93
[2019-04-04] MEDS: HYDROcodone-acetaminophen 5-325 mg Tablet 1 TAB PO ×3 (01:02→15:51)
[2019-04-04 01:26] VITALS: BP 111/55; PULSE 49; RESP 20; TEMP 36.7; O2SAT 94
[2019-04-04] MEDS: piperacillin-tazobactam 3.375 GM in sodium chloride 0.9% (plus) 50 ML IV ×2 (02:07→09:53)
[2019-04-04 04:01] VITALS: BP 171/71; PULSE 56; RESP 20; TEMP 36.6; O2SAT 95
[2019-04-04] MEDS: ibuprofen 600 mg Tablet PO ×2 (04:37→14:01)
[2019-04-04] MEDS: levothyroxine 150 mcg Tablet PO (05:00)
[2019-04-04 07:27] VITALS: BP 156/73; PULSE 57; RESP 18; TEMP 36.4; O2SAT 95
[2019-04-04] MEDS: atorvastatin 40 mg Tablet 80 MG PO (07:57)
[2019-04-04] MEDS: lisinopril 20 mg Tablet PO (07:58)
[2019-04-04] MEDS: metoprolol succinate ER (24 HR) 25 mg Tablet 12.5 MG PO (07:58)
[2019-04-04] MEDS: allopurinol 300 mg Tablet 150 MG PO (07:58)
[2019-04-04] MEDS: nicotine 21 mg Patch 1 PATCH TRANSDERMA (07:59)
[2019-04-04] MEDS: lactobacillus 1 Tablet 4 TAB PO ×2 (07:59→14:01)
[2019-04-04 11:38] VITALS: BP 144/66; PULSE 55; RESP 18; TEMP 36.3; O2SAT 96
--- NOTE | 2019-04-04 12:22 | P.PN_ITS ---
Subjective Subjective: Interval history: Mr. Pagan is a pleasant 78-year-old male 2 days status post right second toe amputation secondary to infected hardware. States his pain is well controlled. He reports decreased redness and swelling to the right leg. He is tolerating regular diet. Patient denies any subjective nausea, vomiting, fever, chills, shortness of breath or chest pain. Vitals/I&O/Wt Last Vital Signs Temp 97.4 F L 04/04/19 11:38 Pulse 55 L 04/04/19 11:38 Resp 18 04/04/19 11:38 BP 144/66 04/04/19 11:38 Pulse Ox 96 04/04/19 11:38 04/03/19 04/04/19 04/04/19 22:59 06:59 14:59 Intake Total 530 / 1610 100 / 1710 300 / 300 Balance 530 / 910 100 / 1010 300 / 300 Physical Exam Narrative: EXAM NARRATIVE: VASCULAR: Dorsalis pedis and posterior tibial arteries palpable. Capillary refill time less than 3 seconds to the distal hallux bilaterally. Calf is supple and nontender proximally and distally. Diminished pedal hair growth bilaterally. Improved right lower extremity edema. NEUROLOGICAL: Protective sensation intact 7/10 sites, tested with [place] Sandra monofilament to bilateral feet. DERMATOLOGICAL: Incision at right second toe amputation site is well coapted with sutures intact. No signs of dehiscence, no drainage no active bleeding at this time. No kira-incisional warmth appreciated. There are skin tension lines present at the right leg consistent with decreased edema. MUSCULOSKELETAL: Mild tenderness to palpation at the operative site. Pes planus foot type bilaterally. Muscle strength 5 out of 5 in all 3 cardinal planes. Data : 04/02/19 15:10 04/02/19 15:10 Micro: Microbiology 04/02/19 12:33 Anaerobic Culture - Preliminary Bone 04/02/19 12:33 Gram Stain - Final Bone Tissue Culture - Preliminary Gram Negative Rods Right foot, 3 views, 04/02/2019 Clinical Data: post op Comparison: Right foot x- ray, 04/01/2019 Findings: The right second toe has been removed. There is air in the operative site. The remainder of the foot shows no change. In the distal right leg there are small medial subcutaneous clips. The tarsal bones and metatarsals are unremarkable. XR/XR foot RT min 3V* [id number] Impression: Amputation of right second toe. Dictated By:Michoacano Hernandez MD Signed By:Angi Hernandez MD: Radiologist's impression: Right foot, 3 views, 04/02/2019 Clinical Data: post op Comparison: Right foot x-ray, 04/01/2019 Findings: The right second toe has been removed. There is air in the operative site. The remainder of the foot shows no change. In the distal right leg there are small medial subcutaneous clips. The tarsal bones and metatarsals are unremarkable. XR/XR foot RT min 3V* [id number] Impression: Amputation of right second toe. Dictated By:Angi Hernandez MD Signed By:Angi Hernandez MD A&P Assessment and plan (1) Infected hardware in right lower extremity: Status: Acute Qualifiers: Encounter type: subsequent encounter Qualified Code(s): T84.7XXD - Infection and inflammatory reaction due to other internal orthopedic prosthetic devices, implants and grafts, subsequent encounter Code(s): T84.7XXA - Infection and inflammatory reaction due to other internal orthopedic prosthetic devices, implants and grafts, initial encounter (2) Cellulitis of right leg: Status: Acute Code(s): L03.115 - Cellulitis of right lower limb (3) Leg edema, right: Status: Acute Code(s): R60.0 - Localized edema Mr. Pagan is a pleasant 78-year-old male 2 days status post right second toe amputation secondary to infected hardware and cellulitis. Improving -Patient to remain limited weightbearing may heel touch for transfers otherwise he is to be elevating his right foot at all times while at rest and in bed. BRIANA&O will dispense new postop shoe better fitting. -Keep postoperative dressing clean, dry and intact, there is no strikethrough bleeding at this time. -He is receiving empiric IV antibiotics vancomycin and Zosyn with improvement. -Right second toe intermediate phalanx bone sent to microbiology for culture and sensitivity, Gram stain negative for organisms, few white blood cells seen. Clean margins appreciated intraoperatively with the level of amputation performed. -Will continue to watch cultures however with clean margins and clinical improvement okay for discharge today on oral of antibiotics. Doxycycline 100 mg twice daily x14 days and ciprofloxacin 500 mg twice daily x14 days sent to [facility] for patient's family to mushroom picker. He has been prescribed hydrocodone outpatient 5/325 mg to be taken as needed every 4-6 hours for pain. -Patient is to keep his current dressing clean, dry and intact until follow-up visit, follow-up in podiatry clinic 04/08/2019 at 8 AM -Reemphasized the importance of limited activity and elevating his right foot while at rest. 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
[2019-04-04] MEDS: enoxaparin 40 mg/0.4 mL Syringe SUBCUT (14:01)
--- NOTE | 2019-04-04 14:24 | PM.DCS ---
Discharge Providers Date of Admission: 04/02/19 13:15 Date of Discharge: Date of Discharge: April 04, 2019 Attending Provider at Admission: Mello March MD Attending Provider at Discharge: Caio Yeager DPM Primary Care Provider: Mello March MD Diagnoses at Discharge Discharge Diagnosis (1) Infected hardware in right lower extremity: Status: Acute Qualifiers: Encounter type: subsequent encounter Qualified Code(s): T84.7XXD - Infection and inflammatory reaction due to other internal orthopedic prosthetic devices, implants and grafts, subsequent encounter (2) Cellulitis of right leg: Status: Acute (3) Leg edema, right: Status: Acute Reason for Visit Reason for Visit: Reason For Visit: Right second toe amp Hospital Course Discharge Summary: Patient was admitted to the hospital for worsening cellulitis of his right lower extremity. This was a consequence of an infected right second toe after a hammertoe repair. He had been on several antibiotics as an outpatient with no resolution. Decision was finally made to amputate the toe. This was performed by Dr. Yeager and subsequently was admitted to the hospital for IV antibiotics afterwards. He has significant improvement in his swelling and redness by the following day. Legs look much better today. Cultures are pending. Patient is being discharged in good condition. We will continue oral antibiotics with ciprofloxacin and doxycycline as an outpatient. Follow-up on cultures in the next couple days. Discharge Data Data Completed and Pending: Completed Studies During Hospitalization Category Date Time Status XR foot RT min 3V * [id number] Routine Exams 04/02/19 15:59 Completed Pending at discharge Category Date Time Status Anaerobic Culture Routine Lab 04/02/19 12:33 Results Tissue Culture an d Gram Stain Routi ne Lab 04/02/19 12:33 Results Vancomycin Trough Timed Lab 04/05/19 15:30 Ordered Pathology: Surgic al [PTH] Routine Pth 04/02/19 12:59 Received Vitals: Last Vital Signs Temp 97.4 F L 04/04/19 11:38 Pulse 55 L 04/04/19 11:38 Resp 18 04/04/19 11:38 BP 144/66 04/04/19 11:38 Pulse Ox 96 04/04/19 11:38 Discharge Plan Discharge Patient Disposition: Home, Self-Care Condition: Stable Prescriptions: Continued naproxen [EC-Naproxen] 500 mg tablet,delayed release (DR/EC) 500 mg PO BID RF: 0 levothyroxine 150 mcg capsule 150 mcg PO ONCE RF: 0 allopurinol 300 mg tablet 150 mg PO BID RF: 0 benazepril 20 mg tablet 20 mg PO BID RF: 0 metoprolol succinate 25 mg tablet extended release 24 hr 12.5 mg PO BID RF: 0 amlodipine 10 mg tablet 10 mg PO ONCE RF: 0 atorvastatin 80 mg tablet 80 mg PO ONCE RF: 0 aspirin [Adult Aspirin Regimen] 81 mg tablet,delayed release (DR/EC) 81 mg PO ONCE RF: 0 (DME) cam walker Qty: 1 RF: 0 doxycycline hyclate 100 mg capsule 100 mg PO BID 14 Days Qty: 28 RF: 0 ciprofloxacin HCl 500 mg tablet 500 mg PO Q12H 14 Days Qty: 28 RF: 0 Discharge Orders: Discharge Order (Routine); Ordered 04/04/19 Ordered By: Mello March Referrals: Caio Yeager DPM [Physician] - 4-7 days Mello March MD [Primary Care Provider] - 4-7 days Discharge Diet: Advance as tolerated Discharge Activity: Limit activity as instructed Activity Restrictions/Additional Instructions: -Resume all your home medications the same. Be sparing with your use of naproxen, ibuprofen, Motrin, or Aleve as these may affect your kidneys. -Continue to use the hydrocodone you have at home for pain. Use stool softeners as we discussed avoid constipation. -Call if increasing swelling or redness in your leg. -Follow-up with Dr. March and Dr. Yeager next week. Discharge Attestations Time Spent in Discharge Care*: greater than 30 min Quality Metrics Clinical Quality Measures During this hospital stay, did patient experience: None Coding Level of Care Code Acute Plycor Operator for [facility] Fwd Diagnoses Infected hardware in right lower extremity T84.7XXD Encounter type: subsequent encounter Cellulitis of right leg L03.115 Leg edema, right R60.0
[2019-04-04 15:23] VITALS: BP 144/66; PULSE 55; RESP 18; TEMP 36.3; O2SAT 96
[2019-04-04 15:42] VITALS: BP 127/71; PULSE 50; RESP 18; TEMP 36.8; O2SAT 98
== END 2019-04-04 17:11 | disposition home or self-care (01) | DRG 908 ==
LOC: MEDSURG 13:15
PROVIDERS: Admitting Provider Family Medicine; Family Provider Family Medicine; PCP Family Medicine; Visit Provider Podiatrist Foot & Ankle Surgery
PROC: 0Y6R0Z0 Detachment at Right 2nd Toe, Complete, Open Approach (ICD-10-PCS; principal; 2019-04-02 12:00)
DX: T85.79XA Infection and inflammatory reaction due to other internal prosthetic devices, implants and grafts, initial encounter (principal); L03.115 Cellulitis of right lower limb; Y83.8 Other surgical procedures as the cause of abnormal reaction of the patient, or of later complication, without mention of misadventure at the time of the procedure; M20.41 Other hammer toe(s) (acquired), right foot; I25.10 Atherosclerotic heart disease of native coronary artery without angina pectoris; E78.00 Pure hypercholesterolemia, unspecified; I10 Essential (primary) hypertension; E03.9 Hypothyroidism, unspecified
CPT/HCPCS: 12345; 36415; 73620; 73630; 80053; 85025; 86140; 87070; 87075; 87077; 87176; 87186; 87205; 88305; 96365; 96372; 97161; 97165; J1650; J2001; J2543; J2704; J3010; J3370; J3490; J7030; J7050

== ENCOUNTER → 2019-07-31 13:24 | Outpatient (BNVA) | payer MEDICARE, OTHER, SELFPAY | PROVIDERS: Family Provider Family Medicine; PCP Family Medicine; Referring Provider Family Medicine; Visit Provider Specialist | DX: Z98.890 Other specified postprocedural states (principal) | CPT/HCPCS: 73560; 73565 ==

== ENCOUNTER 2019-08-06 09:15 | Outpatient (CLI) | payer MEDICARE, OTHER, SELFPAY ==
--- NOTE | 2019-08-06 09:30 | MR_ITS ---
WS: [id number] MRI RIGHT KNEE HISTORY: M17.11 Unilateral primary osteoarthritis, right knee COMPARISON: 07/31/2019 Anterior cruciate ligament: Abnormal ACL. There is increased T2 signal throughout the course of the A CL. There is thickening of the ligament along the normal course of the fibers. There are a few low si gnal fibers still identified. This is most likely severe mucoid degeneration. Not all of the normal f ibers are identified suggesting there could be partial tear involving the inferior portion of the lig ament. Posterior cruciate ligament: Intact. Medial collateral ligament: Intact. Posterior lateral corner structures: Intact. Medial menisci: Intact. Normal signal, size and shape. Lateral meniscus: Abnormal signal in the posterior horn with extension involving both the superior an d inferior articular surfaces. There is a complex tear in the posterior horn greatest in the mid and lateral meniscus. Intrasubstance degeneration in the anterior horn. Extensor mechanism: Distal quadriceps tendon and patellar tendons are intact. Fluid and soft tissue: Small suprapatellar effusion. There are several small loose bodies within the effusion. No Aparicio's cyst. Mild diffuse soft tissue edema around the knee. Variable signal soft tissu e nodule measuring 2.4 cm in the subcutaneous soft tissues over the medial distal femur. Osseous and articular structures: Patellofemoral compartment: Mild narrowing. No significant loss of cartilage. Medial compartment: Mild narrowing of the medial compartment with mild fraying and loss of cartilage. No subchondral defects. Lateral compartment: Moderate narrowing of the lateral compartment with loss of cartilage. Osteophyte s extend from the lateral tibial plateau and femoral condyle. MR/MR knee RT wo con* [id number] IMPRESSION: 1. Moderate internal derangement lateral compartment. 2. Complex tear posterior horn lateral meniscus. 3. Diffuse abnormal signal throughout the ACL is probably due to advanced muco id degeneration. Partial ACL tear may also be present. Not all of the ligamento us fibers can be identified. 4. Variable density superficial, subcutaneous soft tissue nodule in the medial distal thigh. Likely benign and may be related to a sebaceous cyst. 5. Small suprapatellar effusion.
== END 2019-08-06 09:16 | disposition home or self-care (01) ==
LOC: RADSHAW 09:19
PROVIDERS: PCP Family Medicine; Visit Provider Specialist
DX: M17.11 Unilateral primary osteoarthritis, right knee (principal); S83.281A Other tear of lateral meniscus, current injury, right knee, initial encounter; M25.461 Effusion, right knee; X58.XXXA Exposure to other specified factors, initial encounter
CPT/HCPCS: 73721

== ENCOUNTER → 2021-07-05 07:45 | Outpatient (BNVA) | payer MEDICARE, OTHER, SELFPAY | PROVIDERS: PCP Family Medicine; Visit Provider Family Medicine | DX: E03.9 Hypothyroidism, unspecified (principal); I25.10 Atherosclerotic heart disease of native coronary artery without angina pectoris; E78.5 Hyperlipidemia, unspecified; I10 Essential (primary) hypertension; N40.0 Benign prostatic hyperplasia without lower urinary tract symptoms | CPT/HCPCS: 80053; 80061; 84153; 84443; 87077; 87086; 87184 ==

== ENCOUNTER → 2021-12-28 08:46 | Outpatient (BNVA) | payer MEDICARE, OTHER, SELFPAY | PROVIDERS: PCP Family Medicine; Visit Provider Family Medicine | DX: E03.9 Hypothyroidism, unspecified (principal); E78.5 Hyperlipidemia, unspecified; I10 Essential (primary) hypertension; I25.10 Atherosclerotic heart disease of native coronary artery without angina pectoris; R60.0 Localized edema | CPT/HCPCS: 80053; 80061; 84443; 85025 ==

== ENCOUNTER 2022-02-14 15:48 | Outpatient (CLI) | payer MEDICARE, OTHER, SELFPAY ==
--- NOTE | 2022-02-14 16:02 | XR_ITS ---
WS: [id number] CHEST 2 VIEWS HISTORY: chest discomfort COMPARISON: 01/29/2012 Lungs: Clear with no abnormality. No pleural effusion or pneumothorax. Cardiac size: Normal. Mediastinum/Aorta: Moderate atherosclerosis aorta with ectasia. No mediastinal widening. Large hiatal hernia. Prior CABG. Bones: Thoracolumbar scoliosis. Increase in thoracic kyphosis. XR/XR chest 2V* [id number] IMPRESSION: 1. Large hiatal hernia. 2. Moderate atherosclerosis aorta.
== END 2022-02-14 15:49 | disposition home or self-care (01) ==
LOC: RAD 15:56
PROVIDERS: PCP Family Medicine; Visit Provider Family Medicine
DX: R07.89 Other chest pain (principal); K44.9 Diaphragmatic hernia without obstruction or gangrene; I70.0 Atherosclerosis of aorta
CPT/HCPCS: 71046

== ENCOUNTER 2022-04-22 06:02 | Outpatient (CLI) | payer MEDICARE, OTHER, SELFPAY ==
--- NOTE | 2022-04-22 06:30 | USCV_ITS ---
Hosea Pagan Age: 81 Gender: M : 1940 Exam Date: 04/22/2022 06:38 Ordering Phys: Mello March MD Technologist: SHERWIN Exam Location: [facility] – [place] Indication: RLE SWELLING HISTORY: Lower extremity swelling. PROCEDURES: Venous duplex imaging was performed in only the right lower extremity. The following venous structures were evaluated: common femoral vein, profunda vein, proximal portion of the greater saphenous vein, superficial femoral vein, and the popliteal vein. In addition, the posterior tibial and peroneal trunk were evaluated. Serial compression, augmentation maneuvers, and spectral Doppler flow evaluation were performed. FINDINGS: No evidence of DVT seen in any vessel visualized at this time. Right Lower Calf edeam seen CONCLUSIONS No evidence of right lower extremity DVT. Right calf edema Ramo Scherer MD (Electronically Signed) Final Date: 22 April 2022 09:50 S
== END 2022-04-22 06:03 | disposition home or self-care (01) ==
LOC: RAD 06:03
PROVIDERS: PCP Family Medicine; Visit Provider Family Medicine
DX: R60.0 Localized edema (principal)
CPT/HCPCS: 93971

== ENCOUNTER → 2022-06-30 08:22 | Outpatient (BNVA) | payer MEDICARE, OTHER, SELFPAY | PROVIDERS: PCP Family Medicine; Visit Provider Family Medicine | DX: M10.9 Gout, unspecified (principal); E03.9 Hypothyroidism, unspecified; I10 Essential (primary) hypertension; E78.00 Pure hypercholesterolemia, unspecified; R60.0 Localized edema | CPT/HCPCS: 80053; 80061; 84443; 84550 ==

== ENCOUNTER 2022-08-03 09:14 | Outpatient (CLI) | payer MEDICARE, OTHER, SELFPAY ==
--- NOTE | 2022-08-03 09:30 | USCV_ITS ---
Hosea Pagan Age: 82 Gender: M : 1940 Exam Date: 08/03/2022 09:32 Ordering Phys: Mello March MD Technologist: Mary Ann Shah Exam Location: [facility] Indication: Chest pain History of cabg BP: 130 / 80 HR: 64 Rhythm: Sinus Technical Quality: Adequate MEASUREMENTS (Male / Female) Normal Values 2D ECHO LV Diastolic Diameter PLAX 3.5 cm 4.2 - 5.9 / 3.9 - 5.3 cm LV Systolic Diameter PLAX 2.6 cm LV Chamber Size 3.1 cm IVS Diastolic Thickness 0.7 cm 0.6 - 1.0 / 0.6 - 0.9 cm IVS Systolic Thickness 1.3 cm LVPW Diastolic Thickness 1.0 cm 0.6 - 1.0 / 0.6 - 0.9 cm LVPW Systolic Thickness 1.6 cm RV Chamber Size 2.8 cm LVOT Diameter 2.0 cm LV Ejection Fraction 2D Teich 48.2 % LV Ejection Fraction MOD 2C 71.0 % LV Ejection Fraction 2C AL 71.4 % LA Diameter 3.5 cm LA Width 2.3 cm LA Height 5.3 cm RA Width 3.6 cm RA Height 4.8 cm Aorta at Sinotubular Diameter 2.4 cm IVC Diameter 0.8 cm M-MODE Aortic Annulus Diameter 3.4 cm LA Ao Ratio MM 1.3 MV E Point Septal Separation 0.8 cm DOPPLER AV Peak Velocity 194.2 cm/s LVOT Peak Velocity 94.3 cm/s AV Area Cont Eq vti 1.7 cm squared AV Area Cont Eq pk 1.6 cm squared MV Area PHT 3.2 cm squared Mitral E to A Ratio 0.7 MV E' Velocity 33.5 cm/s Mitral E to MV E' Ratio 7.8 Mitral E to LV E' Lateral Ratio 7.6 Mitral E to LV E' Septal Ratio 8.0 TR Peak Velocity 266.5 cm/s TR Peak Gradient 28.4 mmHg TR Mean Velocity 202.5 cm/s TR Mean Gradient 18.0 mmHg TR Velocity Time Integral 90.6 cm TV Peak E Velocity 68.0 cm/s Right Atrial Pressure 3.0 mmHg Pulmonary Artery Systolic Pressu 31.4 mmHg RV Acceleration Time 0.1 s RV Ejection Time 0.3 s RV AcT/ET 0.3 FINDINGS Left Ventricle Normal left ventricular size, systolic function with no regional wall motion abnormalities. LVEF is 60-65 %. No significant regional wall motion abnormalities. Grade 1 diastolic dysfunction Right Ventricle RV is mildly hypokinetic. Right Atrium The right atrium is normal in size. Left Atrium The left atrium is normal in size. Mitral Valve Mild mitral annular calcification seen. Mild mitral regurgitation. Aortic Valve Aortic valve is thickened. Aortic stenosis with aortic valve area of 1.53 cm squared and mean gradient across aortic valve of 7 mmHg. Tricuspid Valve Mild tricuspid regurgitation. Pulmonary artery systolic pressure is normal. Pulmonic Valve Not well-visualized Pericardium Normal pericardium without effusion. Aorta Normal ascending aorta dimension. IVC The inferior vena cava appears normal. CONCLUSIONS LV systolic function is normal with EF of 60 to 65%. Grade 1 diastolic dysfunction. RV is mildly hypokinetic. Mild mitral regurgitation. Mild aortic stenosis. Mild tricuspid regurgitation No comparison studies are available Rik Weber MD (Electronically Signed) Final Date: 06 August 2022 15:34 S
== END 2022-08-03 09:15 | disposition home or self-care (01) ==
LOC: RAD 09:18
PROVIDERS: PCP Family Medicine; Visit Provider Family Medicine
DX: R01.1 Cardiac murmur, unspecified (principal); R07.9 Chest pain, unspecified; I25.10 Atherosclerotic heart disease of native coronary artery without angina pectoris; Z95.1 Presence of aortocoronary bypass graft; I34.0 Nonrheumatic mitral (valve) insufficiency; I35.0 Nonrheumatic aortic (valve) stenosis; I07.1 Rheumatic tricuspid insufficiency
CPT/HCPCS: 93306

== ENCOUNTER → 2022-12-29 09:13 | Outpatient (BNVA) | payer MEDICARE, OTHER, SELFPAY | PROVIDERS: PCP Family Medicine; Visit Provider Family Medicine | DX: E03.9 Hypothyroidism, unspecified (principal); I10 Essential (primary) hypertension; I25.10 Atherosclerotic heart disease of native coronary artery without angina pectoris; R60.0 Localized edema | CPT/HCPCS: 80053; 80061; 84443 ==

== ENCOUNTER 2023-04-07 17:03 | Observation (INO) | payer MEDICARE, OTHER, SELFPAY ==
[2023-04-07] VITALS (9 sets, daily range): BP systolic 109–160; BP diastolic 60–84; PULSE 61–85; RESP 13–20; O2SAT 93–97; BMI 26.7
--- NOTE | 2023-04-07 17:13 | ECG_ITS ---
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 Measurements Intervals [place]an Rate: 75 P: 0 GA: 0 QRS: 112 QRSD: 152 T: 46 QT: 444 QTc: 498 Interpretive Statements UNCERTAIN IRREGULAR RHYTHM RIGHT BUNDLE BRANCH BLOCK [120+ ms QRS DURATION, UPRIGHT V1, 40+ ms S IN I/aVL/V4/V5/V6] LEFT POSTERIOR FASCICULAR BLOCK [QRS AXIS > 109, INFERIOR Q] Compared to ECG 09/04/2017 11:41:41 Left posterior fascicular block now present Sinus rhythm no longer present Right-axis deviation no longer present Electronically Signed On 04-08-2023 5:55:28 TELEPHONE DIRECTORY DELIVERER by Rik Weber M.D. [id number]
--- NOTE | 2023-04-07 17:13 | XRR_ITS ---
PROCEDURE INFORMATION: Exam: XR Chest Exam date and time: 04/07/2023 5:53 PM Age: 82 years old Clinical indication: Angina pectoris; Patient HX: Chest pain; HX cabg 1993; Smoker TECHNIQUE: Imaging protocol: Radiologic exam of the chest. Views: 1 view. COMPARISON: CR XR chest 2V* [id number] 02/14/2022 4:03 PM FINDINGS: Lungs: Lungs are hyperinflated but clear. Pulmonary vascularity is within normal limits. No consolidation. Unchanged linear scar left lung. Unchanged multiple calcified granulomas. Bilateral symmetric round 9 mm soft tissue density pulmonary nodules both lung bases projected just above the hemidiaphragm suspected to be the patient's bilateral nipples. Pleural spaces: Unremarkable. No pleural effusion. No pneumothorax. Heart/Mediastinum: Unremarkable. No cardiomegaly. Unchanged aortic ectasia and atherosclerotic changes. Unchanged large hiatal hernia with air-fluid level. Bones/joints: No acute abnormality. Sternotomy wires and mediastinal surgical clips are present, consistent with previous coronary arterial bypass grafting. XR/XR chest 1V [id number] IMPRESSION: 1. No acute findings. 2. Bilateral symmetric round 9 mm soft tissue density pulmonary nodules both lung bases projected just above the hemidiaphragm suspected to be the patient's bilateral nipples. Follow-up film with nipple markers is recommended.
--- NOTE | 2023-04-07 17:15 | ED_ITS ---
HPI - Chest Pain 2 General: Chief Complaint: Chest Pain Stated Complaint: Chest pains Time Seen by Provider: 04/07/23 17:07 History of Present Illness: 82-year-old man with a history of huerta ry artery bypass grafting in 1993 and no cardiac issues since who presents to the emergency room with chest pain. He says it started about 2 hours ago. Central chest. Pressure. Ache. Says he checked his blood pressure and it was higher than normal at home. Running around 180 versus his normal 120 systolic. No fevers. No cough. No shortness of breath. No abdominal pain. No nausea or vomiting. No diaphoresis. Review of Systems 2 Narrative: Constitutional symptoms: Negative except as documented in HPI. Skin symptoms: Negative except as documented in HPI. Eye symptoms: Negative except as documented in HPI. ENMT symptoms: Negative except as documented in HPI. Respiratory symptoms: Negative except as documented in HPI. Cardiovascular symptoms: Negative except as documented in HPI. Gastrointestinal symptoms: Negative except as documented in HPI. Genitourinary symptoms: Negative except as documented in HPI. Musculoskeletal symptoms: Negative except as documented in HPI. Neurologic symptoms: Negative except as documented in HPI. Psychiatric symptoms: Negative except as documented in HPI. Endocrine symptoms: Negative except as documented in HPI. PFSH ED 2 PFSH: Medical History Gout Hammertoe Hammertoe of second toe of right foot Tear of meniscus of left knee Hypercholesterolemia Hypothyroidism Hypertension Coronary atherosclerosis History of heart attack Sciatica Surgical History History of hammer toe correction History of partial amputation of toe of right foot H/O arthroscopic knee surgery H/O hernia repair Hx of CABG Social History Smoking and tobacco/nicotine status: current every day tobacco/nicotine user Alcohol intake: current Alcohol intake frequency: holidays/special occasions only Substance/Drug Use: never Household members: none Marital status: / Current occupational status: retired Physical Exam 2 Narrative: EXAM NARRATIVE: General: Alert, no acute distress. Skin: Warm, dry. Head: Normocephalic, atraumatic. Neck: Supple, trachea midline. Eye: Extraocular movements are intact. Ears, nose, mouth and throat: mucosa moist. Cardiovascular: Regular, Normal peripheral perfusion. Respiratory: Lungs are clear to auscultation, respirations are non-labored, breath sounds are equal, Symmetrical chest wall expansion. Gastrointestinal: Soft, Nontender, Non distended, Normal bowel sounds. Musculoskeletal: Normal ROM, no deformity. Neurological: Alert and oriented to person, place, time, and situation, No focal neurological deficit observed. Psychiatric: Cooperative, appropriate mood & affect. Course 2 Vital Signs: Vital signs: Vital Signs Pulse Rate 61 04/07/23 20:15 Respiratory Rate 17 04/07/23 20:15 Blood Pressure 126/62 04/07/23 20:15 Pulse Oximetry 95 04/07/23 20:15 Oxygen Delivery Me thod Room Air 04/07/23 19:42 MDM - Chest Pain Medical Decision Making Medical decision making: Differential diagnosis including but not limited to: In this patient with chest pain and a history of coronary artery disease will rule out acute coronary syndrome. Pneumonia. Could be atypical chest pain. Chest x-ray, EKG and basic lab work including serial troponins were ordered. EKG: Time 1706 p.m. rate 75 normal sinus rhythm, No ST-T changes, right bundle branch block with PACs, This was reviewed and interpreted by myself the ER physician. Lab work reviewed. I reviewed lab work personally and interpreted. Patient's initial troponin was slightly elevated at 30. Second was around 70 with a delta of 35. This was significant. I spoke with the hospitalist on-call. I also spoke with the knuckle strap sewer on-call who is good with admission. Chest x-ray: No acute process. No pneumothorax. No infiltrate. No cardiomegaly. This was reviewed and interpreted by myself the ER physician. Lab Data 04/07/23 17:17 04/07/23 17:17 Radiology Impressions Chest X-Ray 04/07/23 17:13 IMPRESSION: 1. No acute findings. 2. Bilateral symmetric round 9 mm soft tissue density pulmonary nodules both lung bases projected just above the hemidiaphragm suspected to be the patient's bilateral nipples. Follow-up film with nipple markers is recommended. Laboratory Results WBC 8.92 10^3/uL (3.29-11.43) 04/07/23 17:17 RBC 3.92 10^6/uL (3.85-5.65) 04/07/23 17:17 Hgb 12.20 g/dL (11.27-16.99) 04/07/23 17:17 Hct 36.8 % (37-53) L 04/07/23 17:17 MCV 93.9 fl (82-101) 04/07/23 17:17 MCH 31.1 pg (27-33) 04/07/23 17:17 MCHC 33.2 g/dL (30-55) 04/07/23 17:17 RDW 15.9 % (12.1-15.1) H 04/07/23 17:17 Plt Count 220 10^3/cmm (157-399) 04/07/23 17:17 MPV 10.7 fL (7.4-10.4) H 04/07/23 17:17 Neut % (Auto) 48.9 % 04/07/23 17:17 Lymph % (Auto) 35.9 % 04/07/23 17:17 Baldwin % (Auto) 9.3 % 04/07/23 17:17 Eos % (Auto) 5.0 % 04/07/23 17:17 Baso % (Auto) 0.8 % 04/07/23 17:17 Neut # (Auto) 4.36 10^3/uL (1.8-7.7) 04/07/23 17:17 Lymph # (Auto) 3.2 10^3/uL (0.8-4.8) 04/07/23 17:17 Baldwin # (Auto) 0.8 10^3/uL (0.2-0.9) 04/07/23 17:17 Eos # (Auto) 0.5 10^3/uL (0.0-0.8) 04/07/23 17:17 Baso # (Auto) 0.1 10^3/uL (0.0-0.1) 04/07/23 17:17 Nucleated RBC % (auto) 0 % 04/07/23 17:17 Nucleated RBCs # 0.0 /100WBC 04/07/23 17:17 Sodium 142 mmol/L (136-145) 04/07/23 17:17 Potassium 4.3 mmol/L (3.5-5.1) 04/07/23 17:17 Chloride 103 mmol/L (98-107) 04/07/23 17:17 Carbon Dioxide 25 mmol/L (22-29) 04/07/23 17:17 Anion Gap 18.3 (5-19) 04/07/23 17:17 BUN 34 mg/dL (8-23) H 04/07/23 17:17 Creatinine 1.7 mg/dL (0.7-1.2) H 04/07/23 17:17 GFR Calculation Not Reportable 04/07/23 17:17 Glucose 125 mg/dL (65-115) H 04/07/23 17:17 Calculated Osmolality 303 mOsm/kg (285-295) H 04/07/23 17:17 Calcium 9.6 mg/dL (8.5-10.5) 04/07/23 17:17 Total Bilirubin 0.6 mg/dL (0.15-1.2) 04/07/23 17:17 AST 37 U/L (0-40) 04/07/23 17:17 ALT 27 U/L (0-41) 04/07/23 17:17 Alkaline Phosphatase 186 U/L (40-130) H 04/07/23 17:17 Troponin T Baseline 32 ng/L (0-15) H 04/07/23 17:17 Troponin T 120 Minute 71.68 ng/L (0-15) H 04/07/23 19:17 Delta Troponin T 39.68 ABS# (0-10) H* 04/07/23 19:17 Total Protein 7.7 g/dL (6.6-8.7) 04/07/23 17:17 Albumin 4.8 g/dL (3.5-5.2) 04/07/23 17:17 Globulin 2.9 g/dL (1.3-4.6) 04/07/23 17:17 XR interpretation done by ED provider, pending radiology final review Other Data - Aspirin, nitro and therapeutic Lovenox. -I discussed the patient with the hospitalist on-call who is admitting the patient. - Discussed findings and plan with patient. Answered any questions. - All laboratory values were reviewed and interpreted personally by myself, the ER physician - All imaging was reviewed and interpreted personally by myself, the ER physician. - Evaluation and treatment of this problem were appropriate in the emergency setting Discharge Plan Discharge Patient Disposition: Admitted As Inpatient Clinical Impression: Chest pain, Elevated troponin Condition: Stable Prescriptions: No Action Galzin 50 mg (zinc) capsule 50 mg PO DAILY Rx Instructions: swallow whole; do not chew/break/dissolve/open ascorbic acid (vitamin C) 1,000 mg tablet 500 mg PO DAILY aspirin [Adult Aspirin Regimen] 81 mg tablet,delayed release (DR/EC) 81 mg PO ONCE (DME) felipe howard Qty: 1 0RF Rx Instructions: As directed levothyroxine 100 mcg tablet 100 mcg PO DAILY Qty: 90 3RF atorvastatin 80 mg tablet See Rx Instructions .ROUTE .COMPLEX Qty: 90 3RF Dose Instruction: TAKE 1 TABLET BY MOUTH EVERY DAY Rx Instructions: TAKE 1 TABLET BY MOUTH EVERY DAY metoprolol succinate 25 mg tablet extended release 24 hr See Rx Instructions .ROUTE .COMPLEX Qty: 90 3RF Dose Instruction: TAKE ONE TABLET BY MOUTH EVERY DAY Rx Instructions: TAKE ONE TABLET BY MOUTH EVERY DAY allopurinol 300 mg tablet See Rx Instructions .ROUTE .COMPLEX Qty: 90 3RF Dose Instruction: TAKE 1 TABLET BY MOUTH EVERY DAY Rx Instructions: TAKE 1 TABLET BY MOUTH EVERY DAY amlodipine 10 mg tablet See Rx Instructions .ROUTE .COMPLEX Qty: 90 3RF Dose Instruction: TAKE 1/2 TABLET BY MOUTH TWICE DAILY Rx Instructions: TAKE 1/2 TABLET BY MOUTH TWICE DAILY benazepril 20 mg tablet See Rx Instructions .ROUTE .COMPLEX Qty: 180 2RF Dose Instruction: TAKE ONE TABLET BY MOUTH TWICE DAILY Rx Instructions: TAKE ONE TABLET BY MOUTH TWICE DAILY Referrals: Mello March MD [Primary Care Provider] - Coding Level of Care Code ED Pipe Smoking Machine Offbearer for Kaylan Lee
[2023-04-07] MEDS: aspirin 81 mg Chew Tablet 324 MG PO (17:24)
[2023-04-07] MEDS: nitroglycerin 0.4 mg sublingual Tablet SUBLINGUAL ×2 (17:25→17:50)
[2023-04-07 17:40] LABS: Basophils # 0.1 10^3/uL (0.0-0.1); Basophils % 0.8 %; Eosinophils # 0.5 10^3/uL (0.0-0.8); Hematocrit 36.8 % (37-53); Lymphocytes # 3.2 10^3/uL (0.8-4.8); Lymphocytes % 35.9 %; Mean Corpuscular HGB Conc 33.2 g/dL (30-55); Mean Corpuscular Hemoglobin 31.1 pg (27-33); Mean Corpuscular Volume 93.9 fl (82-101); Mean Platelet Volume 10.7 fL (7.4-10.4); Monocytes # 0.8 10^3/uL (0.2-0.9); Monocytes % 9.3 %; Neutrophils # 4.36 10^3/uL (1.8-7.7); Neutrophils % 48.9 %; Nucleated Red Blood Cells % 0 %; Platelet Count 220 10^3/cmm (157-399); Red Blood Count 3.92 10^6/uL (3.85-5.65); Red Cell Distribution Width 15.9 % (12.1-15.1); White Blood Count 8.92 10^3/uL (3.29-11.43)
[2023-04-07 17:44] LABS: Troponin(5th) Baseline 32 ng/L (0-15)
--- NOTE | 2023-04-07 17:44 | PC.NURSE ---
this nurse gave pt 1 nitro at 1726. at 1731 pt stated the nitro worked and didn't need a second dose.
[2023-04-07 17:45] LABS: Alanine Aminotransferase 27 U/L (0-41); Albumin Level 4.8 g/dL (3.5-5.2); Alkaline Phosphatase 186 U/L (40-130); Anion Gap 18.3 (5-19); Aspartate Amino Transferase 37 U/L (0-40); Blood Urea Nitrogen 34 mg/dL (8-23); Calcium 9.6 mg/dL (8.5-10.5); Carbon Dioxide 25 mmol/L (22-29); Chloride 103 mmol/L (98-107); Globulin 2.9 g/dL (1.3-4.6); Glucose 125 mg/dL (65-115); Osmolality Calculated 303 mOsm/kg (285-295); Potassium 4.3 mmol/L (3.5-5.1); Sodium 142 mmol/L (136-145); Total Bilirubin 0.6 mg/dL (0.15-1.2); Total Protein 7.7 g/dL (6.6-8.7)
[2023-04-07 19:46] LABS: Troponin 5 2HR 71.68 ng/L (0-15)
[2023-04-07 20:18] LABS: Troponin 5 2HR Delta 39.68 ABS# (0-10)
--- NOTE | 2023-04-07 21:03 | P.HP_ITS ---
Providers/Chief Complaint 2 Primary Care Provider: Mello March MD Chief Complaint: Chest pains History of Present Illness Hosea Pagan is a 82 year old male with past medical history significant for coronary artery disease with three-vessel bypass in 1993, hypertension, hypothyroidism, gout, tobacco use disorder, and dyslipidemia who presents emergency department with left-sided substernal chest pain. He reports symptoms started this afternoon. He states they lasted for total of 2 to 3 hours. He describes the pain as a centralized pressure in his chest. Exertion makes the pain worse. He reports he received 2 nitroglycerin with the second dose improving his pain. He denies any fevers, chills, shortness of breath, or cough. Denies abdominal pain, nausea, or emesis. Other than his bypass in 1993, he denies any other cardiac interventions. Denies any recent ischemic workup including stress test or cardiac catheterization. Review of Systems 2 Narrative: General: Patient is awake and alert. Standing. Head: Normocephalic. Atraumatic. EOM intact. Neck: No JVD. Cardiovascular: 1+ systolic murmur. No gallops. No rubs. 1+ pedal edema. Lungs: Clear to auscultation, no use of accessory muscles, no crackles or wheezes. Skin: No jaundice. No rashes. Abdomen: Normal bowel sounds, abdomen soft and nontender. Genito Urinary: Genital exam not performed since complaints not related. Rectal: Rectal exam not performed since no symptoms indicated blood loss. Extremities: No cyanosis or clubbing. Musculoskeletal: No swollen or erythematous joints. Neurological: Moves all 4 extremities. No myoclonus. Medications/Allergies Home Medications Medication Instructions Recorded Confirmed Last Taken Type aspirin 81 mg tablet,delayed 81 mg PO ONCE 03/04/19 01/26/23 04/01/19 History release (Adult Aspirin Regimen) felipe howard #1 ea 03/20/19 01/26/23 Unknown Rx ascorbic acid (vitamin C) 1,000 mg 500 mg PO DAILY 07/31/19 01/26/23 Unknown History tablet zinc acetate 50 mg (zinc) capsule 50 mg PO DAILY 07/31/19 01/26/23 Unknown History (Galzin) atorvastatin 80 mg tablet See Rx Instructions .Route 12/29/22 01/26/23 Unknown Rx .COMPLEX #90 tabs levothyroxine 100 mcg tablet 100 mcg PO DAILY #90 tabs 01/09/23 01/26/23 Unknown Rx allopurinol 300 mg tablet See Rx Instructions .Route 03/27/23 Unknown Rx .COMPLEX #90 tabs amlodipine 10 mg tablet See Rx Instructions .Route 03/27/23 Unknown Rx .COMPLEX #90 tabs benazepril 20 mg tablet See Rx Instructions .Route 03/27/23 Unknown Rx .COMPLEX #180 tabs metoprolol succinate 25 mg See Rx Instructions .Route 03/27/23 Unknown Rx tablet,extended release 24 hr .COMPLEX #90 tabs Allergies Allergy/AdvReac Type Severity Reaction Status Date / Time cephalexin [From Keflex] Allergy Intermediate ALGY-Swell Verified 04/07/23 17:13 Lip/Tongue/Throat PFSH Acute 2 PFSH: Medical History (Updated 04/08/23 @ 01:22 by Ferdinand Ahuja MD) Lateral meniscal tear Primary osteoarthritis of right knee Infected hardware in right lower extremity Cellulitis of right leg Leg edema, right Gout Hammertoe Hammertoe of second toe of right foot Tear of meniscus of left knee Hypercholesterolemia Hypothyroidism Hypertension Coronary atherosclerosis History of heart attack Sciatica Surgical History (Updated 04/08/23 @ 01:21 by Ferdinand Ahuja MD) Postoperative state History of hammer toe correction History of partial amputation of toe of right foot H/O arthroscopic knee surgery H/O hernia repair Hx of CABG Social History Smoking and tobacco/nicotine status: current every day tobacco/nicotine user Alcohol intake: current Alcohol intake frequency: holidays/special occasions only Substance/Drug Use: never Household members: none Marital status: / Current occupational status: retired Vitals/I&O/Wt Last Vital Signs Pulse 61 04/07/23 20:15 Resp 17 04/07/23 20:15 BP 126/62 04/07/23 20:15 Pulse Ox 95 04/07/23 20:15 O2 Del Method Room Air 04/07/23 19:42 Weight last 48 hrs Weight 68.039 kg Physical Exam 2 Narrative: General: Patient is awake and alert. Head: Normocephalic. Atraumatic. EOM intact. Neck: No JVD. Cardiovascular: RRR. No gallops. No murmurs. No peripheral edema. Lungs: Clear to auscultation, no use of accessory muscles, no crackles or wheezes. Skin: No jaundice. No rashes. Abdomen: Normal bowel sounds, abdomen soft and nontender. Genito Urinary: Genital exam not performed since complaints not related. Rectal: Rectal exam not performed since no symptoms indicated blood loss. Extremities: No cyanosis or clubbing. Musculoskeletal: 5/5 strength, normal range of motion, no swollen or erythematous joints. Neurological: Moves all 4 extremities. No myoclonus. Data 04/07/23 17:17 04/07/23 17:17 A&P Assessment and plan (1) NSTEMI (non-ST elevated myocardial infarction): History of coronary artery disease status post three-vessel bypass in 1993 Telemetry monitoring Trend troponins Start therapeutic Lovenox Continue beta-blockade, heart rate currently 70 Continue high intensity statin Continue aspirin Echocardiogram Cardiology consult (2) Hypertension: Patient reports blood pressure was previously elevated prior to arrival Continue metoprolol Continue JOSEPH inhibitor Qualifiers: Hypertension type: primary hypertension Qualified Code(s): I10 - Essential (primary) hypertension (3) Hypothyroidism: Check free T4 Continue home Synthroid Qualifiers: Hypothyroidism type: unspecified Qualified Code(s): E03.9 - Hypothyroidism, unspecified (4) Hypercholesterolemia: Continue statin Check lipids and A1c for restratification (5) Gout: Continue allopurinol Monitor renal function Qualifiers: Gout site: unspecified site Gout etiology: unspecified cause C hronicity: unspecified Qualified Code(s): M10.9 - Gout, unspecified Plan DVT prophylaxis: Lovenox CODE STATUS: Full code Attestations 2 Medical Necessity Statement*: Patient presents with left-sided chest pain, found to have NSTEMI with expected hospitalization not to cross 2 midnights for ACS protocol, cardiology consult, and supportive care. Coding Level [facility] N[facility]I (non-ST elevated myocardial infarction) I21.4 Primary hypertension I10 Hypertension type: primary hypertension Hypothyroidism, unspecified type E03.9 Hypothyroidism type: unspecified Hypercholesterolemia E78.00 Gout, unspecified cause, unspecified chronicity, unspecified site M10.9 Gout site: unspecified site Gout etiology: unspecified cause Chronicity: unspecified
[2023-04-07] MEDS: enoxaparin 80 mg/0.8 mL Syringe 70 MG SUBCUT (21:30)
[2023-04-07] MEDS: atorvastatin 40 mg Tablet 80 MG PO (21:31)
--- NOTE | 2023-04-07 22:19 | PC.NURSE ---
Report called to RIGOBERTO Carranza in [facility]. All questions and concerns addressed at time of report.
[2023-04-07 23:18] LABS: Estmated Average Glucose 123; Hemoglobin A1C 5.9 % (4.0-6.0)
[2023-04-08] VITALS (8 sets, daily range): BP systolic 110–135; BP diastolic 61–72; PULSE 49–61; RESP 12–18; TEMP 36.4–37; O2SAT 92–96
[2023-04-08 01:01] LABS: Chol HDL Ratio 1.96 mg/dL (1.0-5.00); Cholesterol 112 mg/dL (0-200); HDL Cholesterol 57 mg/dL (60-100); LDL Cholesterol Calculated 38 mg/dL (50-129); LDL HDL Ratio 0.67 RATIO (0.00-3.22); Triglycerides 87 mg/dL (0-150)
[2023-04-08 01:09] LABS: Free T4 Free Thyroxine 1.42 ng/dL (0.82-1.77)
[2023-04-08 04:19] LABS: Basophils # 0.1 10^3/uL (0.0-0.1); Eosinophils # 0.4 10^3/uL (0.0-0.8); Eosinophils % 5.8 %; Hematocrit 30.9 % (37-53); Lymphocytes # 1.9 10^3/uL (0.8-4.8); Lymphocytes % 32.3 %; Mean Corpuscular HGB Conc 33.3 g/dL (30-55); Mean Corpuscular Hemoglobin 31.8 pg (27-33); Mean Corpuscular Volume 95.4 fl (82-101); Mean Platelet Volume 10.7 fL (7.4-10.4); Monocytes # 0.6 10^3/uL (0.2-0.9); Monocytes % 9.8 %; Neutrophils # 3.07 10^3/uL (1.8-7.7); Neutrophils % 51.1 %; Nucleated Red Blood Cells % 0 %; Platelet Count 173 10^3/cmm (157-399); Red Blood Count 3.24 10^6/uL (3.85-5.65); Red Cell Distribution Width 15.7 % (12.1-15.1); White Blood Count 6.01 10^3/uL (3.29-11.43)
[2023-04-08 04:44] LABS: Anion Gap 13.1 (5-19); Blood Urea Nitrogen 36 mg/dL (8-23); Carbon Dioxide 25 mmol/L (22-29); Chloride 109 mmol/L (98-107); Glucose 99 mg/dL (65-115); Magnesium 1.9 mg/dL (1.7-2.3); Osmolality Calculated 304 mOsm/kg (285-295); Potassium 4.1 mmol/L (3.5-5.1); Sodium 143 mmol/L (136-145)
--- NOTE | 2023-04-08 06:00 | USCV_ITS ---
Pagan Hosea Age: 82 Gender: M : 1940 Exam Date: 04/08/2023 09:49 Ordering Phys: Ferdinand Ahuja MD Technologist: Lalo Wallace [place] [facility] [place]: nstemi BP: 129 / 61 HR: 56 Rhythm: Sinus Technical Quality: MEASUREMENTS (Male / Female) Normal Values 2D ECHO LVOT Diameter 2.0 cm LV Ejection Fraction MOD 2C 59.1 % LV Ejection Fraction 2C AL 60.1 % LA Diameter 3.2 cm LA Width 4.3 cm LA Height 4.9 cm RA Width 3.6 cm RA Height 5.1 cm Aorta at Sinotubular Diameter 1.9 cm IVC Diameter 1.9 cm M-MODE Aortic Annulus Diameter 3.4 cm LA Ao Ratio MM 1.0 MV E Point Septal Separation 0.9 cm DOPPLER AV Peak Velocity 171.0 cm/s LVOT Peak Velocity 78.0 cm/s AV Area Cont Eq vti 1.3 cm squared AV Area Cont Eq pk 1.5 cm squared MV Peak Velocity 106.0 cm/s MV Area PHT 3.6 cm squared Mitral E to A Ratio 0.6 MV E' Velocity 26.5 cm/s Mitral E to MV E' Ratio 9.0 Mitral E to LV E' Lateral Ratio 12.3 Mitral E to LV E' Septal Ratio 7.1 TR Peak Velocity 301.5 cm/s TR Peak Gradient 36.4 mmHg TR Mean Velocity 210.7 cm/s TR Mean Gradient 20.4 mmHg TR Velocity Time Integral 95.3 cm Right Atrial Pressure 3.0 mmHg Pulmonary Artery Systolic Pressu 39.4 mmHg PV Peak Velocity 119.3 cm/s RV Acceleration Time 0.1 s RV Ejection Time 0.3 s RV AcT/ET 0.4 FINDINGS Left Ventricle Examination is technically suboptimal. The ventricle is normal in size. The apex and the apical view appears severely hypokinetic. The remainder of the ventricle contracts normally. Ejection fraction is about 55%. Grade 1 diastolic dysfunction. Right Ventricle Normal right ventricular size and systolic function. Normal right ventricular systolic pressure. Right Atrium The right atrium is normal in size. Left Atrium Mildly increased left atrial size. Mitral Valve Structurally normal mitral valve. No mitral valve regurgitation. Aortic Valve Structurally normal trileaflet aortic valve. No aortic valve regurgitation. Tricuspid Valve Structurally normal tricuspid valve. Mild tricuspid valve regurgitation. Pulmonic Valve Pulmonic valve not well visualized. Pericardium Normal pericardium without effusion. Aorta Normal ascending aorta dimension. IVC The inferior vena cava appears normal. CONCLUSIONS Examination is technically suboptimal. The ventricle is normal in size. The apex and the apical view appears severely hypokinetic. The remainder of the ventricle contracts normally. Ejection fraction is about 55%. Grade 1 diastolic dysfunction. Mildly increased left atrial size. Previous study was done 08/06/2022. Today's study reveals new hypokinesis of the apex and absence of the previously mentioned aortic stenosis Dr. Paul Valladares MD (Electronically Signed) Final Date: 08 April 2023 10:43 S
--- NOTE | 2023-04-08 08:24 | PC.PHAR ---
PT PRESENTED MED LIST IN ROOM. LEVOTHYROXINE DOSAGE INCREASED TO 125 MCG DAILY, PT HAS STOPPED TAKING VITAMIN C AND ZINC. 04/08/23
[2023-04-08] MEDS: levothyroxine 100 mcg Tablet PO (08:59)
[2023-04-08] MEDS: lisinopril 20 mg Tablet PO (08:59)
[2023-04-08] MEDS: aspirin 81 mg EC Tablet PO (08:59)
--- NOTE | 2023-04-08 09:05 | PM.CONSULT ---
Providers/Reason For Consult Consulting Physician/Specialty*: Cardiovascular medicine Reason for Consult*: Chest pain elevated troponin Requesting Physician: Hospitalist Attending Physician: Aletha Mahoney MD Primary Care Provider: Mello March MD History of Present Illness History of Present Illness Hosea Pagan is a 82 year old male with a known history of coronary disease. About 25 or 30 years ago he had bypass surgery at [facility] in [place]. He has not had any trouble since. To my knowledge he has not had stress testing or coronary angiography since that time. He did have an echo in July of last year which showed a normal ejection fraction and mild aortic stenosis. He entered the hospital late yesterday with chest discomfort. His first troponin was 32, the second was 71. His EKG shows sinus rhythm with PVCs and PACs and a right bundle branch block but no acute changes. He is relatively reticent to undergo angiography. He wants to be sure he gets home tomorrow for the [facility]. Currently he is free of any discomfort. His other history includes lifelong smoking, hypertension, dyslipidemia and hypothyroidism. Review of Systems Narrative: Review of systems is negative Medications/Allergies Home Medications Medication Instructions Recorded Confirmed Last Taken Type aspirin 81 mg tablet,delayed 81 mg PO DAILY 03/04/19 04/08/23 04/07/23 History release (Adult Aspirin Regimen) fleipe howard #1 ea 03/20/19 04/08/23 Unknown Rx atorvastatin 80 mg tablet See Rx Instructions .Route 12/29/22 04/08/23 04/07/23 Rx .COMPLEX #90 tabs allopurinol 300 mg tablet See Rx Instructions .Route 03/27/23 04/08/23 04/07/23 Rx .COMPLEX #90 tabs amlodipine 10 mg tablet See Rx Instructions .Route 03/27/23 04/08/23 04/07/23 Rx .COMPLEX #90 tabs benazepril 20 mg tablet See Rx Instructions .Route 03/27/23 04/08/23 04/07/23 Rx .COMPLEX #180 tabs metoprolol succinate 25 mg See Rx Instructions .Route 03/27/23 04/08/23 04/07/23 Rx tablet,extended release 24 hr .COMPLEX #90 tabs levothyroxine 125 mcg tablet 125 mcg PO DAILY 04/08/23 04/08/23 04/07/23 History Allergies Allergy/AdvReac Type Severity Reaction Status Date / Time cephalexin [From Keflex] Allergy Intermediate ALGY-Swell Verified 04/07/23 17:13 Lip/Tongue/Throat Current Medications Generic Name Dose Route Start Last Admin Trade Name Freq PRN Reason Stop Dose Admin Aspirin 81 mg 04/08/23 09:00 04/08/23 08:59 Aspirin 81 Mg Ec Tablet PO 81 mg DAILY ANAND Administration Atorvastatin Calcium 80 mg 04/07/23 21:30 04/07/23 21:31 Atorvastatin 40 Mg Tablet PO 80 mg BEDTIME ANAND Administration Enoxaparin Sodium 70 mg 04/07/23 23:00 04/07/23 23:27 Enoxaparin 80 Mg/0.8 Ml Syringe SUBCUT Not Given Q12H ANAND Levothyroxine Sodium 100 mcg 04/08/23 09:00 04/08/23 08:59 Levothyroxine 100 Mcg Tablet PO 100 mcg DAILY ANAND Administration Lisinopril 20 mg 04/08/23 09:00 04/08/23 08:59 Lisinopril 20 Mg Tablet PO 20 mg BID ANAND Administration Nitroglycerin 0.4 mg 04/07/23 17:13 04/07/23 17:50 Nitroglycerin 0.4 Mg Sublingual Tablet SUBLINGUAL 0.4 mg Q5M PRN Administration CHEST PAIN PFSH Acute PFSH: Medical History (Updated 04/08/23 @ 09:33 by Paul Valladares MD) Tobacco abuse Aortic insufficiency with aortic stenosis Lateral meniscal tear Primary osteoarthritis of right knee Infected hardware in right lower extremity Cellulitis of right leg Leg edema, right Gout Hammertoe Hammertoe of second toe of right foot Tear of meniscus of left knee Hypercholesterolemia Hypothyroidism Hypertension Coronary atherosclerosis History of heart attack Sciatica Surgical History (Updated 04/08/23 @ 09:33 by Paul Valladares MD) Postoperative state History of hammer toe correction History of partial amputation of toe of right foot H/O arthroscopic knee surgery H/O hernia repair Hx of CABG Social History Smoking and tobacco/nicotine status: current every day tobacco/nicotine user Alcohol intake: current Alcohol intake frequency: holidays/special occasions only Substance/Drug Use: never Household members: none Marital status: / Current occupational status: retired Vitals/I&O/Wt Last Vital Signs Temp 97.5 F L 04/08/23 07:00 Pulse 52 L 04/08/23 07:00 Resp 18 04/08/23 07:00 BP 129/61 04/08/23 07:00 Pulse Ox 93 04/08/23 07:00 O2 Del Method Room Air 04/08/23 07:00 04/07/23 04/08/23 04/08/23 22:59 06:59 14:59 Intake Total 240 / 240 240 / 240 Output Total 200 / 200 Balance 40 / 40 240 / 240 Weight last 48 hrs Weight 162 lb 6.4 oz Weight 160 lb 14.4 oz Weight 150 lb Physical Exam Narrative: GENERAL: In general he looks and feels well HEENT: Exam within normal limits. NECK: Supple without jugular vein distention. The carotid upstroke is normal without bruits. BACK: Exam normal. LUNGS: Clear. HEART: Regular rate and rhythm. ABDOMEN: Benign without organomegaly or tenderness. EXTREMITIES: No edema. NEUROLOGIC: Exam normal. SKIN: Unremarkable. Data 04/08/23 04:07 04/08/23 04:07 A&P Assessment and plan (1) Coronary atherosclerosis: (2) Hypertension: Qualifiers: Hypertension type: primary hypertension Qualified Code(s): I10 - Essential (primary) hypertension (3) Hypercholesterolemia: (4) Chest pain: (5) Elevated troponin: (6) Aortic insufficiency with aortic stenosis: (7) Tobacco abuse: Plan I gave him 2 options. The first would be to try medical treatment. The second would be to perform angiography. The difficulty with angiography is we do not have his bypass surgery report and are not likely going to be able to get it this far down the line. Most of these records have likely been purged 25 or 30 years later. I told him that I would be happy to do the angiogram but could not guarantee him I could find all of his grafts. He would like to try medical therapy first. I will ensure that he is on the correct antianginal medicines here and then have him get up and around later today. He will want to go home if he is free of chest discomfort and tolerating the medications. Consult Attestations Medical Necessity Statement: Admission for chest discomfort, coronary disease with elevated troponin. Coding Level of Care Code Acute Code for [facility] Diagnoses Coronary atherosclerosis I25.10 Primary hypertension I10 Hypertension type: primary hypertension Hypercholesterolemia E78.00 Chest pain R07.9 Elevated troponin R79.89 Aortic insufficiency with aortic stenosis I35.2 Tobacco abuse Z72.0
[2023-04-08] MEDS: isosorbide mononitrate ER 30 mg Tablet PO (10:31)
--- NOTE | 2023-04-08 11:24 | PC.CHAP ---
Pastoral Care Encounter/Spiritual Assessment Type of Contact [] Declined floor broker visit [] Patient/Family/Request visit [] Outpatient visit [] Follow-up visit [] Physician referral [] Code/Alert [] Routine visit [] Staff referral [] Actively dying [] Patient sleeping [] Family support [] [] Out of room [] Palliative care [] [] Receiving care in room [] Pre-surgical visit [] Trauma [] Long length of stay [] ICU visit [] Other: Relational/Emotional Strength [] Patient feels connected with others/family/visitors/staff [] Distress [] Loneliness/isolation [] Abandonment Spirituality of Patient [] Person of Daniela [] Attends Yarsani of their Daniela [] Believes in Prayer [] Reads Bible or Anglican materials [] There are Spiritual issues to be addressed [place] Re[place] Interventions [] Prayer [] Active listening [] Non-anxious presence [] Spiritual/emotional support [] Crisis/trauma care [] Spiritual counseling [] Bereavement support [] Provided bereavement packet [] Provided Bible/devotional materials [] Provided toy/stuffed animal, coloring book to patient or family member [] Provided Communion [] Anointing/[place] [] Salvation [] Completed spiritual assessment [] Other: Impact on Illness or Injury [] Angry [] Fearful [] Anxious [] Often cries [] Exhaustion [] Unable to work [] Unable to attend catholic [] Unable to walk/stand [] Unable to read [] Unable to drive [] Unable to eat/drink [] Unable to sleep [] Unable to be with family [] Patient intubated [] Other: Summary Patient declined prayer Time spent with patient
[2023-04-08] MEDS: metoprolol succinate ER (24 HR) 25 mg Tablet PO (12:43)
--- NOTE | 2023-04-08 14:21 | PC.NURSE ---
pt has been ambulating down hallways and in room. provided pt with tele box to monitor cardiac. Pt denies any chest pains, discomfort but had 1 episode of shortness of breath this morning when he was walking fast, he stated.
--- NOTE | 2023-04-08 16:59 | P.PN_ITS ---
Subjective 2 Subjective: Admitted overnight. H&P and labs appreciated. Appreciate the consult note. Patient denies any nausea, vomiting, headache. [place] Today seen with multiple family members at bedside. Has remained hemodynamically stable and afebrile. Vitals/I&O/Wt Last Vital Signs Temp 98.0 F 04/08/23 16:00 Pulse 56 L 04/08/23 16:00 Resp 14 04/08/23 16:00 BP 133/71 04/08/23 16:00 Pulse Ox 93 04/08/23 07:00 O2 Del Method Room Air 04/08/23 07:00 04/08/23 04/08/23 04/08/23 06:59 14:59 22:59 Intake Total 240 / 240 580 / 580 Output Total 200 / 200 Balance 40 / 40 580 / 580 Weight last 48 hrs Weight 73.663 kg Weight 72.983 kg Weight 68.039 kg Physical Exam 2 Narrative: General: Patient is awake and alert. Head: Normocephalic. Atraumatic. EOM intact. Neck: No JVD. Cardiovascular: RRR. No gallops. No murmurs. No peripheral edema. Lungs: Clear to auscultation, no use of accessory muscles, no crackles or wheezes. Skin: No jaundice. No rashes. Abdomen: Normal bowel sounds, abdomen soft and nontender. Genito Urinary: Genital exam not performed since complaints not related. Rectal: Rectal exam not performed since no symptoms indicated blood loss. Extremities: No cyanosis or clubbing. Musculoskeletal: 5/5 strength, normal range of motion, no swollen or erythematous joints. Neurological: Moves all 4 extremities. No myoclonus. Data 04/08/23 04:07 04/08/23 04:07 A&P Assessment and plan (1) NSTEMI (non-ST elevated myocardial infarction): History of coronary artery disease status post three-vessel bypass in 1993 Telemetry monitoring. Troponin trend not done at 6-hour. Will add troponin to morning labs from today. Continue with aspirin, statin, beta-aditya. Monitor heart rate as heart rate has been running in mid 50s. Did receive 1 dose of full dose Lovenox last night. If repeat troponin from today morning trending up we will continue Lovenox 1 mg/kg body weight every 12 hourly as per creatinine clearance. Appreciate cardiology recommendations. Plan for medical management with nitrates for now and no plan for cardiac angiogram. Echocardiogram done today shows EF of 55%, grade 1 diastolic dysfunction with severely hypokinetic apex. (2) Hypertension: Goal blood pressure less than 140/90 mmHg. Continue metoprolol 25 mg daily, lisinopril 20 mg oral daily. Adding Imdur. Will uptitrate as for goal blood pressures. Qualifiers: Hypertension type: primary hypertension Qualified Code(s): I10 - Essential (primary) hypertension (3) Hypothyroidism: Free T4 levels normal. Continue home Synthroid Qualifiers: Hypothyroidism type: unspecified Qualified Code(s): E03.9 - Hypothyroidism, unspecified (4) Hypercholesterolemia: Continue statin Appreciate A1c and blood panel results. (5) Gout: Continue allopurinol. Dose changed as per renal functions. Qualifiers: Gout site: unspecified site Gout etiology: unspecified cause C hronicity: unspecified Qualified Code(s): M10.9 - Gout, unspecified Plan DVT prophylaxis: Lovenox CODE STATUS: Full code Cardiac diet Protonix for PUD prophylaxis Attestations 2 Medical Necessity Statement*: Requires further hospitalization for management of non-ST elevation AL in a patient who is post CABG while further medication adjustments are done Diagnoses NSTEMI (non-ST elevated myocardial infarction) I21.4 Primary hypertension I10 Hypertension type: primary hypertension Hypothyroidism, unspecified type E03.9 Hypothyroidism type: unspecified Hypercholesterolemia E78.00 Gout, unspecified cause, unspecified chronicity, unspecified site M10.9 Gout site: unspecified site Gout etiology: unspecified cause Chronicity: unspecified
[2023-04-08 17:18] LABS: Troponin T (5th) Once 722 ng/L (0-15)
[2023-04-08 17:25] LABS: Iron 37 ug/dL (59-158); Percent Saturation 13.3 % (20-50); Total Iron Binding Capacity 278 mcg/dl; Unsaturated Iron Binding 241 ug/dL (112-347)
[2023-04-08 17:40] LABS: Vitamin B12 279 pg/mL (232-1245)
[2023-04-08] MEDS: enoxaparin 80 mg/0.8 mL Syringe 70 MG SUBCUT (18:27)
[2023-04-08] MEDS: pantoprazole DR 40 mg Tablet PO (18:30)
[2023-04-08] MEDS: allopurinol 100 mg Tablet PO (18:30)
[2023-04-08] MEDS: atorvastatin 40 mg Tablet 80 MG PO (21:02)
[2023-04-09] VITALS: BP 117/63; PULSE 48; RESP 14; TEMP 36.6; O2SAT 94
[2023-04-09 03:57] LABS: Basophils # 0.1 10^3/uL (0.0-0.1); Basophils % 0.9 %; Eosinophils # 0.4 10^3/uL (0.0-0.8); Eosinophils % 7.7 %; Hematocrit 32.8 % (37-53); Lymphocytes % 36.6 %; Mean Corpuscular HGB Conc 32.6 g/dL (30-55); Mean Corpuscular Hemoglobin 30.8 pg (27-33); Mean Corpuscular Volume 94.5 fl (82-101); Mean Platelet Volume 10.4 fL (7.4-10.4); Monocytes # 0.5 10^3/uL (0.2-0.9); Monocytes % 8.2 %; Neutrophils # 2.54 10^3/uL (1.8-7.7); Neutrophils % 46.2 %; Nucleated Red Blood Cells % 0 %; Platelet Count 160 10^3/cmm (157-399); Red Blood Count 3.47 10^6/uL (3.85-5.65); Red Cell Distribution Width 15.6 % (12.1-15.1); White Blood Count 5.49 10^3/uL (3.29-11.43)
[2023-04-09 04:00] VITALS: BP 114/53; PULSE 46; RESP 14; TEMP 36.4; O2SAT 94
[2023-04-09 04:19] LABS: Alanine Aminotransferase 19 U/L (0-41); Albumin Level 3.4 g/dL (3.5-5.2); Alkaline Phosphatase 124 U/L (40-130); Anion Gap 12.5 (5-19); Aspartate Amino Transferase 33 U/L (0-40); Blood Urea Nitrogen 34 mg/dL (8-23); Calcium 8.5 mg/dL (8.5-10.5); Carbon Dioxide 25 mmol/L (22-29); Chloride 107 mmol/L (98-107); Globulin 2.3 g/dL (1.3-4.6); Glucose 79 mg/dL (65-115); Osmolality Calculated 297 mOsm/kg (285-295); Potassium 4.5 mmol/L (3.5-5.1); Sodium 140 mmol/L (136-145); Total Bilirubin 0.5 mg/dL (0.15-1.2); Total Protein 5.7 g/dL (6.6-8.7)
[2023-04-09 04:22] LABS: Magnesium 1.9 mg/dL (1.7-2.3)
[2023-04-09] MEDS: enoxaparin 80 mg/0.8 mL Syringe 70 MG SUBCUT (05:05)
[2023-04-09 05:33] VITALS: PULSE 45
[2023-04-09 05:35] LABS: Folate Level 8.2 ng/mL (4.5-32.2)
[2023-04-09 07:00] VITALS: BP 142/68; PULSE 56; RESP 15; TEMP 36.8; O2SAT 96
--- NOTE | 2023-04-09 07:24 | P.PN_ITS ---
Subjective 2 Subjective: When I saw Mr. Pagan yesterday he did not want to proceed with any invasive testing. He has been stable overnight. He has been up and around walking up and down the halls with his son. No further chest pain. He is desirous to go home today so that he can watch the football game. His troponin started out at 32 and peaked at 722. I suspect he had an infarct in the apex given the appearance of his echo. He has a new wall motion disturbance in the apex. His EKG was not significantly changed. He does have a very small R wave in leads V1 through V3 however he has a right bundle branch block and a PVC there so it is difficult to tell whether there is a new finding of a myocardial infarction in that distribution. I asked him again this morning if he wanted to maintain medical therapy. He does. Vitals/I&O/Wt Last Vital Signs Temp 98.3 F 04/09/23 07:00 Pulse 56 L 04/09/23 07:00 Resp 15 04/09/23 07:00 BP 142/68 04/09/23 07:00 Pulse Ox 96 04/09/23 07:00 O2 Del Method Room Air 04/09/23 07:00 04/08/23 04/09/23 04/09/23 22:59 06:59 14:59 Intake Total 560 / 1140 100 / 1240 Balance 560 / 1140 100 / 1240 Weight last 48 hrs Weight 159 lb 4.8 oz Weight 162 lb 6.4 oz Weight 160 lb 14.4 oz Weight 150 lb Physical Exam 2 Narrative: GENERAL: In general he looks and feels well HEENT: Exam within normal limits. NECK: Supple without jugular vein distention. The carotid upstroke is normal without bruits. BACK: Exam normal. LUNGS: Clear. HEART: Regular rate and rhythm. ABDOMEN: Benign without organomegaly or tenderness. EXTREMITIES: No edema. NEUROLOGIC: Exam normal. SKIN: Unremarkable. Data 04/09/23 03:29 04/09/23 03:29 A&P Assessment and plan (1) Coronary atherosclerosis: (2) Hypertension: Qualifiers: Hypertension type: primary hypertension Qualified Code(s): I10 - Essential (primary) hypertension (3) Hypercholesterolemia: (4) Hx of CABG: (5) Chest pain: (6) Elevated troponin: (7) NSTEMI (non-ST elevated myocardial infarction): (8) Aortic insufficiency with aortic stenosis: (9) Tobacco abuse: Plan He remained stable. He wants to go home. Primary goal is to watch the football game later today. He was admitted on amlodipine, aspirin, statin, JOSEPH inhibitor and a beta-aditya. Those medications should continue. I do not see the advantage of adding any new medications. I do not think that he sees anybody in our office on a regular basis. He should follow-up with someone in 2 or 3 months. Attestations 2 Medical Necessity Statement*: Able to be discharged home today and Moderate Time for a total of 30 minutes, includes reviewing past or interval history, examining/interviewing patient, placing orders, counseling patient/family/other support, updating patient/family/other support, discussing plan of care with staff, communicating with other healthcare providers, documenting encounter and coordinating care Diagnoses Coronary atherosclerosis I25.10 Primary hypertension I10 Hypertension type: primary hypertension Hypercholesterolemia E78.00 Hx of CABG Z95.1 Chest pain R07.9 Elevated troponin R79.89 NSTEMI (non-ST elevated myocardial infarction) I21.4 Aortic insufficiency with aortic stenosis I35.2 Tobacco abuse Z72.0
[2023-04-09] MEDS: aspirin 81 mg EC Tablet PO (08:45)
[2023-04-09] MEDS: lisinopril 20 mg Tablet PO (08:45)
[2023-04-09] MEDS: metoprolol succinate ER (24 HR) 25 mg Tablet PO (08:45)
[2023-04-09] MEDS: isosorbide mononitrate ER 30 mg Tablet PO (08:45)
[2023-04-09] MEDS: levothyroxine 100 mcg Tablet PO (08:46)
[2023-04-09] MEDS: pantoprazole DR 40 mg Tablet PO (08:46)
--- NOTE | 2023-04-09 10:22 | PC.NURSE ---
med education Pt asked if he going to be on these new meds when he gets to go home. Discuss to pt and with his 2 kids at bedside the new medications that he was put on while he is in the hospital. Discuss to him the reasons why we are giving the protonix and lovenox for gi and vte prophylaxis. But cardiac med such as isosorbide will be his new discharge med. pt and kids verbalizes understanding.
--- NOTE | 2023-04-09 10:26 | P.DS_ITS ---
Discharge Providers Date of Admission: 04/07/23 20:59 Date of Discharge: April 09, 2023 Attending Provider at Admission: Ferdinand Ahuja MD Attending Provider at Discharge: J Carlos Quintero MD Consults: Cardiology: Dr. Valladares Primary Care Provider: Mello March MD Diagnoses at Discharge Discharge Diagnosis (1) Coronary atherosclerosis: Status: Acute (2) Hypertension: Status: Acute Qualifiers: Hypertension type: primary hypertension Qualified Code(s): I10 - Essential (primary) hypertension (3) Hypercholesterolemia: Status: Acute (4) Hx of CABG: Status: Acute (5) Chest pain: Status: Acute (6) Elevated troponin: Status: Acute (7) NSTEMI (non-ST elevated myocardial infarction): Status: Acute (8) Aortic insufficiency with aortic stenosis: Status: Acute (9) Tobacco abuse: Status: Acute Reason for Visit Reason for Visit: Chest pains Brief History: History as per HPI Hosea Pagan is a 82 year old male with past medical history significant for coronary artery disease with three-vessel bypass in 1993, hypertension, hypothyroidism, gout, tobacco use disorder, and dyslipidemia who presents emergency department with left-sided substernal chest pain. He reports symptoms started this afternoon. He states they lasted for total of 2 to 3 hours. He describes the pain as a centralized pressure in his chest. Exertion makes the p ain worse. He reports he received 2 nitroglycerin with the second dose improving his pain. He denies any fevers, chills, shortness of breath, or cough. Denies abdominal pain, nausea, or emesis. Other than his bypass in 1993, he denies any other cardiac interventions. Denies any recent ischemic workup including stress test or cardiac catheterization. Hospital Course Hospital Course Patient was admitted to the hospital further evaluation management of non-ST elevation. He was started on treatment for ACS with aspirin, anticoagulation with Lovenox and cardiology was consulted. Treatment options of medical versus possible cardiac angiography were discussed in detail with the patient. There was difficulty of cardiac angiography as we do not have any bypass surgery report and as per cardiology team most likely they will not be available as his CABG was more than 25 to 30 years ago. As per conversation with the cardiology team patient decided to go ahead with medical management and he was started on long-acting nitrates. Patient tolerated treatment well and did not have any further chest pain at both rest and ambulation. He has been hemodynamically stable over last 24 hours and he has been discharged in hemodynamically stable condition after he has been cleared from cardiology team. Going forward he is to take Imdur 30 mg daily along with continuation of all his other medications except amlodipine. He is to check his blood pressures daily at home and maintain a blood pressure diary and follow-up with his primary care provider within next 2 weeks for further adjustment of antihypertensives as needed. His dose of allopurinol also has been decreased to 100 mg daily given his renal functions. Discharge plan discussed in detail with the patient and he verbalized understanding. Physical Exam Narrative: General: Patient is awake and alert. Head: Normocephalic. Atraumatic. EOM intact. Neck: No JVD. Cardiovascular: RRR. No gallops. No murmurs. No peripheral edema. Lungs: Clear to auscultation, no use of accessory muscles, no crackles or wheezes. Skin: No jaundice. No rashes. Abdomen: Normal bowel sounds, abdomen soft and nontender. Genito Urinary: Genital exam not performed since complaints not related. Rectal: Rectal exam not performed since no symptoms indicated blood loss. Extremities: No cyanosis or clubbing. Musculoskeletal: 5/5 strength, normal range of motion, no swollen or erythematous joints. Neurological: Moves all 4 extremities. No myoclonus. Discharge Data Studies Completed and Pending Completed Studies During Hospitalization Category Date Time Status XR chest 1V [id number] Stat Exams 04/07/23 17:13 Completed CV. echo complete* [id number] Urgent Ultrasound 04/08/23 06:00 Completed Pending at discharge Category Date Time Status MAG [Magnesium] AM LABS Lab 04/10/23 04:00 Ordered MAG [Magnesium] AM LABS Lab 04/11/23 04:00 Ordered Radiology Impressions Chest X-Ray 04/07/23 17:13 IMPRESSION: 1. No acute findings. 2. Bilateral symmetric round 9 mm soft tissue density pulmonary nodules both lung bases projected just above the hemidiaphragm suspected to be the patient's bilateral nipples. Follow-up film with nipple markers is recommended. Echocardiogram: CONCLUSIONS Examination is technically suboptimal. The ventricle is normal in size. The apex and the apical view appears severely hypokinetic. The remainder of the ventricle contracts normally. Ejection fraction is about 55%. Grade 1 diastolic dysfunction. Mildly increased left atrial size. Previous study was done 08/06/2022. Today's study reveals new hypokinesis of the apex and absence of the previously mentioned aortic stenosis Dr. Paul Valladares MD (Electronically Signed) Final Date: 08 April 2023 10:43 Laboratory Results WBC 5.49 10^3/uL (3.29-11.43) 04/09/23 03:29 RBC 3.47 10^6/uL (3.85-5.65) L 04/09/23 03:29 Hgb 10.70 g/dL (11.27-16.99) L 04/09/23 03:29 Hct 32.8 % (37-53) L 04/09/23 03:29 MCV 94.5 fl (82-101) 04/09/23 03:29 MCH 30.8 pg (27-33) 04/09/23 03:29 MCHC 32.6 g/dL (30-55) 04/09/23 03:29 RDW 15.6 % (12.1-15.1) H 04/09/23 03:29 Plt Count 160 10^3/cmm (157-399) 04/09/23 03:29 MPV 10.4 fL (7.4-10.4) 04/09/23 03:29 Neut % (Auto) 46.2 % 04/09/23 03:29 Lymph % (Auto) 36.6 % 04/09/23 03:29 [place] % (Auto) 8.2 % 04/09/23 03:29 Eos % (Auto) 7.7 % 04/09/23 03:29 Baso % (Auto) 0.9 % 04/09/23 03:29 Neut # (Auto) 2.54 10^3/uL (1.8-7.7) 04/09/23 03:29 Lymph # (Auto) 2.0 10^3/uL (0.8-4.8) 04/09/23 03:29 [place] # (Auto) 0.5 10^3/uL (0.2-0.9) 04/09/23 03:29 Eos # (Auto) 0.4 10^3/uL (0.0-0.8) 04/09/23 03:29 Baso # (Auto) 0.1 10^3/uL (0.0-0.1) 04/09/23 03:29 Nucleated RBC % (auto) 0 % 04/09/23 03:29 Nucleated RBCs # 0.0 /100WBC 04/09/23 03:29 Sodium 140 mmol/L (136-145) 04/09/23 03:29 Potassium 4.5 mmol/L (3.5-5.1) 04/09/23 03:29 Chloride 107 mmol/L (98-107) 04/09/23 03:29 Carbon Dioxide 25 mmol/L (22-29) 04/09/23 03:29 Anion Gap 12.5 (5-19) 04/09/23 03:29 BUN 34 mg/dL (8-23) H 04/09/23 03:29 Creatinine 1.4 mg/dL (0.7-1.2) H 04/09/23 03:29 GFR Calculation Not Reportable 04/09/23 03:29 Glucose 79 mg/dL (65-115) 04/09/23 03:29 Estimat Average Glucose 123 04/07/23 17:17 Hemoglobin A1c 5.9 % (4.0-6.0) 04/07/23 17:17 Calculated Osmolality 297 mOsm/kg (285-295) H 04/09/23 03:29 Calcium 8.5 mg/dL (8.5-10.5) 04/09/23 03:29 Phosphorus 3.0 mg/dL (2.5-4.5) 04/08/23 04:07 Magnesium 1.9 mg/dL (1.7-2.3) 04/09/23 03:29 Iron 37 ug/dL (59-158) L 04/08/23 04:07 TIBC 278 mcg/dl 04/08/23 04:07 % Saturation 13.3 % (20-50) L 04/08/23 04:07 Unsat Iron Binding 241 ug/dL (112-347) 04/08/23 04:07 Total Bilirubin 0.5 mg/dL (0.15-1.2) 04/09/23 03:29 AST 33 U/L (0-40) 04/09/23 03:29 ALT 19 U/L (0-41) 04/09/23 03:29 Alkaline Phosphatase 124 U/L (40-130) 04/09/23 03:29 Troponin T 5th Gen ng/L 722 ng/L (0-15) H* 04/08/23 04:07 Troponin T Baseline 32 ng/L (0-15) H 04/07/23 17:17 Troponin T 120 Minute 71.68 ng/L (0-15) H 04/07/23 19:17 Delta Troponin T 39.68 ABS# (0-10) H* 04/07/23 19:17 Total Protein 5.7 g/dL (6.6-8.7) L 04/09/23 03:29 Albumin 3.4 g/dL (3.5-5.2) L 04/09/23 03:29 Globulin 2.3 g/dL (1.3-4.6) 04/09/23 03:29 Triglycerides 87 mg/dL (0-150) 04/08/23 00:00 Cholesterol 112 mg/dL (0-200) 04/08/23 00:00 LDL Cholesterol, Calc 38 mg/dL (50-129) L 04/08/23 00:00 HDL Cholesterol 57 mg/dL (60-100) L 04/08/23 00:00 LDL/HDL Ratio 0.67 RATIO (0.00-3.22) 04/08/23 00:00 Cholesterol/HDL Ratio 1.96 mg/dL (1.0-5.00) 04/08/23 00:00 Vitamin B12 279 pg/mL (232-1245) 04/08/23 04:07 Folate 8.2 ng/mL (4.5-32.2) 04/09/23 03:29 Free T4 1.42 ng/dL (0.82-1.77) 04/08/23 00:00 Vitals Last Vital Signs Temp 98.3 F 04/09/23 07:00 Pulse 56 L 04/09/23 07:00 Resp 15 04/09/23 07:00 BP 142/68 04/09/23 07:00 Pulse Ox 96 04/09/23 07:00 O2 Del Method Room Air 04/09/23 07:00 Discharge Plan Discharge Patient Disposition: Home Condition: Stable Prescriptions: New isosorbide mononitrate 30 mg Tablet Extended Release 24 Hr 30 mg PO DAILY Qty: 30 0RF allopurinol 100 mg Tablet 100 mg PO QPM Qty: 30 0RF nitroglycerin 0.4 mg Tablet, Sublingual 0.4 mg sublingual Q5M PRN (Reason: Chest Pain) Qty: 20 0RF Continued aspirin [Adult Aspirin Regimen] 81 mg tablet,delayed release (DR/EC) 81 mg PO DAILY (DME) cam walker Qty: 1 0RF Rx Instructions: As directed atorvastatin 80 mg tablet See Rx Instructions .ROUTE .COMPLEX Qty: 90 3RF Dose Instruction: TAKE 1 TABLET BY MOUTH EVERY DAY Rx Instructions: TAKE 1 TABLET BY MOUTH EVERY DAY metoprolol succinate 25 mg tablet extended release 24 hr See Rx Instructions .ROUTE .COMPLEX Qty: 90 3RF Dose Instruction: TAKE ONE TABLET BY MOUTH EVERY DAY Rx Instructions: TAKE ONE TABLET BY MOUTH EVERY DAY levothyroxine 125 mcg tablet 125 mcg PO DAILY Changed benazepril 20 mg tablet 20 mg PO DAILY Qty: 180 2RF Dose Instruction: TAKE ONE TABLET BY MOUTH TWICE DAILY Discontinued allopurinol 300 mg PO QPM amlodipine 10 mg Tablet 10 mg PO DAILY Discharge Orders: Discharge Order (Routine); Ordered 04/09/23 Ordered By: J Carlos Quintero Referrals: Martita Cordova FNP [Nurse Practitioner] - 2 weeks (If you have not heard from the clinic by Monday afternoon, please call their office at [phone].) Mello March MD [Primary Care Provider] - 7-10 days (If you have not heard from the clinic by Monday afternoon, please call their office at [phone]. Thanks ) Discharge Diet: Cardiac Discharge Activity: Resume usual activity and Increase activity as tolerated Patient Instructions: Nitroglycerin (By mouth), Isosorbide Mononitrate (By mouth) (Imdur, Imdur ER, Ismo), Heart Healthy Diet (DC), Bradycardia (DC), High Troponin Levels (GEN), Chest Pain Stoplight, Opioid Safety Activity Restrictions/Additional Instructions: please check your blood pressure daily at home and maintain a diary and follow up with your pcp in 2 weeks for further adjustment. Take Imdur 30 mg daily. Hold Amlodipine for now. Check BMP in 2 weeks. Dose of Allopurinol has been changed to 100 mg daily. Discharge Attestations Time Spent in Discharge Care*: greater than 30 min Quality Metrics Clinical Quality Measures [ No reported AMI, CVA or VTE this stay] Coding Level of Care Code Acute Code for Chg Fwd Diagnoses Coronary atherosclerosis I25.10 Primary hypertension I10 Hypertension type: primary hypertension Hypercholesterolemia E78.00 Hx of CABG Z95.1 Chest pain R07.9 Elevated troponin R79.89 NSTEMI (non-ST elevated myocardial infarction) I21.4 Aortic insufficiency with aortic stenosis I35.2 Tobacco abuse Z72.0
== END 2023-04-09 12:03 | disposition home or self-care (01) ==
LOC: ER 21:35 → CSU 21:41
PROVIDERS: Admitting Provider Internal Medicine; Emergency Provider Emergency Medicine; PCP Family Medicine; Visit Provider Student in an Organized Health Care Education/Training Program
DX: I25.2 Old myocardial infarction (principal); I25.10 Atherosclerotic heart disease of native coronary artery without angina pectoris; I10 Essential (primary) hypertension; E78.00 Pure hypercholesterolemia, unspecified; Z95.1 Presence of aortocoronary bypass graft; R07.9 Chest pain, unspecified; R79.89 Other specified abnormal findings of blood chemistry; I35.2 Nonrheumatic aortic (valve) stenosis with insufficiency; Z72.0 Tobacco use; E03.9 Hypothyroidism, unspecified; E78.5 Hyperlipidemia, unspecified; Z79.82 Long term (current) use of aspirin; Z79.01 Long term (current) use of anticoagulants; M10.9 Gout, unspecified
CPT/HCPCS: 36415; 71045; 80048; 80053; 80061; 82607; 82746; 83036; 83540; 83550; 83735; 84100; 84439; 84484; 85025; 93005; 93306; 96372; 99285; G0378; J1650

== ENCOUNTER → 2023-04-18 08:42 | Outpatient (BNVA) | payer MEDICARE, OTHER, SELFPAY | PROVIDERS: PCP Family Medicine; Visit Provider Family Medicine | DX: I21.4 Non-ST elevation (NSTEMI) myocardial infarction (principal); R35.1 Nocturia; E03.9 Hypothyroidism, unspecified; I10 Essential (primary) hypertension; E78.00 Pure hypercholesterolemia, unspecified; R01.1 Cardiac murmur, unspecified; I25.10 Atherosclerotic heart disease of native coronary artery without angina pectoris | CPT/HCPCS: 80048; 80053; 80061; 84153; 85025 ==

== ENCOUNTER → 2023-09-14 13:11 | Outpatient (BNVA) | payer MEDICARE, OTHER, SELFPAY | PROVIDERS: PCP Family Medicine; Visit Provider Family Medicine | DX: I10 Essential (primary) hypertension (principal); I25.10 Atherosclerotic heart disease of native coronary artery without angina pectoris | CPT/HCPCS: 80053; 85025 ==

== ENCOUNTER → 2023-10-11 14:06 | Outpatient (BNVA) | payer MEDICARE, OTHER, SELFPAY | PROVIDERS: PCP Family Medicine; Visit Provider Family Medicine | DX: R79.89 Other specified abnormal findings of blood chemistry (principal) | CPT/HCPCS: 80048 ==

== ENCOUNTER → 2024-01-04 09:10 | Outpatient (BNVA) | payer MEDICARE, OTHER, SELFPAY | PROVIDERS: PCP Family Medicine; Visit Provider Family Medicine | DX: I10 Essential (primary) hypertension (principal); I25.10 Atherosclerotic heart disease of native coronary artery without angina pectoris; E03.9 Hypothyroidism, unspecified; R07.9 Chest pain, unspecified; E11.9 Type 2 diabetes mellitus without complications | CPT/HCPCS: 80053; 80061; 84443; 85025 ==

== ENCOUNTER → 2024-04-10 12:24 | Outpatient (BNVA) | payer MEDICARE, OTHER, SELFPAY | PROVIDERS: PCP Family Medicine; Visit Provider Family Medicine | DX: I10 Essential (primary) hypertension (principal); I25.10 Atherosclerotic heart disease of native coronary artery without angina pectoris; R60.9 Edema, unspecified | CPT/HCPCS: 80053; 83880; 85025 ==

== ENCOUNTER → 2024-10-09 09:38 | Outpatient (BNVA) | payer MEDICARE, OTHER, SELFPAY | PROVIDERS: PCP Family Medicine; Visit Provider Family Medicine | DX: N18.9 Chronic kidney disease, unspecified (principal); I10 Essential (primary) hypertension; R53.83 Other fatigue | CPT/HCPCS: 80053; 80061; 84443; 85025 ==

== ENCOUNTER → 2025-02-04 15:33 | Outpatient (BNVA) | payer MEDICARE, OTHER, SELFPAY | PROVIDERS: PCP Family Medicine; Visit Provider Family Medicine | DX: I25.10 Atherosclerotic heart disease of native coronary artery without angina pectoris (principal); I10 Essential (primary) hypertension | CPT/HCPCS: 80048; 85025 ==